=== PATIENT | male | born 1945 | race African-American/Black ===

== ENCOUNTER 2017-02-19 20:07 | Inpatient (IN) ==
[2017-02-19] MEDS ORDERED: ONDANSETRON 4 MG/2 ML VIAL IV STA (20:37)
[2017-02-19] MEDS ORDERED: SODIUM CHLORIDE 0.9% 500 ML IV STA (20:37)
[2017-02-19] MEDS ORDERED: KETOROLAC 30 MG/1 ML VIAL IV STA (20:37)
[2017-02-19] MEDS ORDERED: ONDANSETRON 4 MG/2 ML VIAL ONE (20:43)
[2017-02-19] MEDS ORDERED: KETOROLAC 30 MG/1 ML VIAL ONE (20:43)
[2017-02-19 20:47] LABS: Basophils % 0.2 % (0.0-0.8); Eosinophils % 0.3 % (0.00-10.9); Hematocrit 34.3 VOL% (42.0-52.0); Hemoglobin 11.5 GM/DL (14.0-18.0); Immature Granulocytes % 0.6 %; Immature Granulocytes Absolute 0.04 #; Lymphocytes # 0.7 10*3/uL (1.4-4.0); Lymphocytes % 11.3 % (21.2-54.2); Mean Corpuscular HGB Conc 33.5 GM/DL (32-36); Mean Corpuscular Hemoglobin 33 PG (27-34); Mean Corpuscular Volume 99.7 FL (87-102); Mean Platelet Volume 12.3 FL (9.6-12.0); Monocytes # 0.5 10*3/uL (0.11-0.8); Monocytes % 8.4 % (1.7-12.7); Neutrophils # 4.9 10*3/uL (1.4-7.4); Neutrophils % 79.2 % (38.7-73.9); Platelet Count 70 T/CUMM (130-400); Red Blood Count 3.44 MC/CUMM (3.8-5.5); Red Cell Distribution Width 14.6 % (9.3-17.3); White Blood Count 6.2 T/CUMM (4-12)
--- NOTE | 2017-02-19 20:49 | Emergency Department Note ---
Simone Diamond Hilary, am scribing for, and in the presence of, Da Ziegler MD 20:39. Toney Diamond Robert M, MD, personally performed the services described in this documentation, ascribed by Kateryna Nichols in my presence, and it is both accurate and complete . Arrival - Arrival Chief Complaint: Abdominal / Flank Pain ED Nursing Triage Note: ONSET ABD PAIN WITH N/V ONSET THIS AM, ZOFRAN 4MG IV PER EMS BOILER/CHILLER OPERATOR, PT STILL COMPLAINS OF NAUSEA Mode of Arrival: Stretcher Limitations: No Limitations Source: Patient, RN Notes Reviewed - History of Present Illness HPI Narrative: Pt is a 71 y/o male brought into the ED via EMS for c/o abdominal pain which onset this AM. Pt confirms nausea, vomiting, abdominal pain adn diarrhea. He states that the bumps in the road hurt and it feels better to sit with his hips and knees up. No other complaints or problems stated in the ED. Onset (ago): hour(s) Consistency: constant Severity: mild Severity scale (1-10): 1 Quality: cramping Allergies/Adverse Reactions: Allergies Allergy/AdvReac Type Severity Reaction Status Date / Time morphine Allergy Severe UNRESPONSIV Verified 02/19/17 20:19 E cephalexin [From Keflex] Allergy Intermediate RASH Verified 02/19/17 20:19 azithromycin AdvReac Intermediate INJECTION Verified 02/19/17 20:19 SITE REACTION propranolol AdvReac Intermediate Palpitation Verified 02/19/17 20:19 s Home Medications: Home Medications Medication Instructions Recorded Confirmed Type Albuterol Sulfate [Ventolin HFA] 2 puffs IH Q4HR PRN 11/15/14 12/11/16 History Betaxolol 0.5% Oph Soln [Betoptic 1 drop BOTH EYES BID 11/15/14 12/10/16 History 0.5%] Brimonidine 0.15% Oph Soln 1 drops BOTH EYES TID 11/15/14 12/10/16 History [Alphagan P 0.15%] Docusate Sodium 100 mg PO DAILY 11/15/14 12/10/16 History Dorzolamide 2% Oph Soln [Trusopt] 1 drop BOTH EYES TID 11/15/14 12/10/16 History Latanoprost 0.005% Oph Soln 1 drop BOTH EYES BEDTIME 11/15/14 12/10/16 History [Xalatan] Metoprolol Succinate Xl [Toprol Xl] 50 mg PO BID 11/15/14 12/10/16 History Tiotropium Inhalation [Spiriva 18 mcg INH DAILY 11/15/14 12/10/16 History Handihaler] Pantoprazole Tab [Protonix Tab] 40 mg PO BID #0 11/25/14 12/10/16 Rx Potassium Chloride Cap/Tab [K Dur] 10 meq PO DAILY tablet 11/04/15 12/10/16 Rx Albuterol/Ipratropium Neb [Duoneb] 3 ml RESP TX RT Q4H nebulization 11/06/15 Rx solution Budesonide/Formoterol 160-4.5 1 puff PO BID 11/06/15 12/10/16 History [Symbicort 160-4.5] Cetirizine HCl [Cetirizine Tab] 10 mg PO DAILY 12/10/16 12/10/16 History Folic Acid Tab 1 mg PO DAILY 12/10/16 12/10/16 History Ipratropium/Albuterol Inhaler 1 puff INH QID 12/10/16 12/10/16 History [Combivent Respimat Inhaler] Lipase/Protease/Amylase [Creon 1 capsule PO TID W/MEALS 12/10/16 12/10/16 History 36,000 Units] Multivit-Min/FA/Lycopen/Lutein 1 each PO DAILY 12/10/16 12/10/16 History [Centrum Silver Tablet] Polyethylene Glycol Powder 17 gm PO DAILY 12/10/16 12/10/16 History [Miralax] hydroCHLOROthiazide 12.5 mg PO DAILY 12/10/16 12/10/16 History [Hydrochlorothiazide] Alfuzosin [Uroxatral] 10 mg PO DAILY 12/11/16 12/11/16 History Aspirin 81 mg PO DAILY 12/11/16 12/11/16 History Atorvastatin [Lipitor] 20 mg PO BEDTIME 12/11/16 12/11/16 History Cholecalciferol (Vitamin D3) 1,000 unit PO BID 12/11/16 12/11/16 History [Vitamin D3 Chew Tab] Magnesium Oxide 420 mg PO BID 12/11/16 12/11/16 History Thiamine HCl 100 mg PO DAILY 12/11/16 12/11/16 History Review of System - Review of System 12 point system: reviewed and no additional remarkable complaints except as stated - Review of System Constitutional: Absent: fever Gastrointestinal: Present: abdominal pain, nausea, vomiting, diarrhea Medical,Surgical,& Family Hx - Medical History Cardio: History of: CHF, Hypertension, [place], PVD (DVT WITH PROLONGED HOSPITALIZATION) Neurology: No history of: Multiple Sclerosis, Seizures, Neurologocal Cancer HEENT: History of: Eye Problem (detached retina of left eye, since June, seen [place]), Glaucoma Endocrine: History of: Dyslipidemia No history of: Thyroid Disorder Respiratory: History of: COPD, Respiratory Problems (HOME O2 AT 2 LITERS) Genitourinary: History of: Prostate Problems (HAD A BALLOON IN PROSTATE) No history of: Bladder Problem Gastrointestinal: History of: GERD, Pancreatitis, GI Problems (GALLSTONES) Musculoskeletal: History of: Musculoskeletal Problems (DVT,DOES HAVE IVC FILTER) Hematology: History of: Anemia No history of: Blood Transfusion Reaction Other: History of: Anesthesia Reactions (DIDNT WAKE UP FOR 13 DAYS AFTER IVP FILTER PLACED.) No history of: Cancer - Surgical History Cardiac Surgeries: Sugical HX of: Cardiac Catheterization HEENT Surgeries: Patient denies: Eye Surgery, Tonsilectomy & Adenoidectomy Abdominal Surgeries: Surgical HX of: Appendectomy (APPENDECTOMY), Colonoscopy, EGD (EGD IN JUN, JUL) Patient denies: Cholecystectomy Reproductive Surgeries: Surgical HX of;: Prostate Surgery Orthopedic Surgeries: Surgical HX of;: Spinal Surgery (GROWTH BEHIND HIS NECK) Patient denies;: Orthopedic Surgery - Family History Family History: Reports;: Family Cancer (MOTHER-COLON, BROTHER-BRAIN TUMOR, SISTER-BRAIN CANCER), Family Hypertension - Social History Smoking Status: Never smoker Exam Vital Signs: Vital Signs Temperature 99.1 F 02/19/17 20:10 Pulse Rate 93 H 02/19/17 21:45 Respiratory Rate 20 02/19/17 21:45 Blood Pressure 131/89 02/19/17 21:45 O2 Sat by Pulse Oximetry 97 02/19/17 21:45 - General General appearance: alert, in no apparent distress, other (sitting with hips and knees flexed) - Head Head exam: Present: atraumatic, normocephalic - Eye Eye exam: Present: normal appearance, PERRL, EOMI - ENT ENT exam: Present: mucous membranes moist, TM's normal bilaterally. Absent: mucous membranes dry - Neck Neck exam: Present: full ROM, trachea midline. Absent: tenderness - Chest Chest inspection: Present: symmetric chest wall rise. Absent: tenderness - Respiratory Respiratory exam: Present: normal lung sounds bilaterally. Absent: respiratory distress - Cardiovascular Cardiovascular exam: Present: regular rate, normal rhythm, normal heart sounds. Absent: murmur, rubs, gallop - Abdominal Exam Abdominal exam: Present: soft, tenderness (LLQ bilaterally), rebound, normal bowel sounds. Absent: distention, guarding - Extremities Exam Extremities exam: Present: full ROM. Absent: tenderness - Back Exam Back exam: Present: full ROM. Absent: tenderness - Neurological Exam Neurological exam: Present: alert, oriented X3, CN II-XII intact. Absent: motor sensory deficit - Psychiatric Psychiatric exam: Present: normal affect, normal mood - Skin Skin exam: Present: warm, dry, intact, normal color. Absent: rash Course - Reevaluation(s) Reevaluation #1: The patient remains somewhat tender in the upper quadrants bilaterally and the abdomen remains slightly distended. Time: 23:28 - Consultations Consultation #1: Dr. Bang Millan will evaluate and admit the patient. Time: 23:28 Results - Labs CBC & BMP: 02/19/17 20:01 02/19/17 20:01 Lab Results: I have reviewed the patients labs Labs: Lab Results WBC 6.2 T/CUMM (4-12) 02/19/17 20:01 RBC 3.44 MC/CUMM (3.8-5.5) L 02/19/17 20:01 Hgb 11.5 GM/DL (14.0-18.0) L 02/19/17 20:01 Hct 34.3 VOL% (42.0-52.0) L 02/19/17 20:01 MCV 99.7 FL (87-102) 02/19/17 20:01 MCH 33 PG (27-34) 02/19/17 20:01 MCHC 33.5 GM/DL (32-36) 02/19/17 20:01 RDW 14.6 % (9.3-17.3) 02/19/17 20:01 Plt Count 70 T/CUMM (130-400) L 02/19/17 20:01 MPV 12.3 FL (9.6-12.0) H 02/19/17 20:01 Neut % (Auto) 79.2 % (38.7-73.9) H 02/19/17 20:01 Lymph % (Auto) 11.3 % (21.2-54.2) L 02/19/17 20:01 Irwin % (Auto) 8.4 % (1.7-12.7) 02/19/17 20:01 Eos % (Auto) 0.3 % (0.00-10.9) 02/19/17 20:01 Baso % (Auto) 0.2 % (0.0-0.8) 02/19/17 20:01 Neut # (Auto) 4.9 10*3/uL (1.4-7.4) 02/19/17 20:01 Lymph # (Auto) 0.7 10*3/uL (1.4-4.0) L 02/19/17 20:01 Irwin # (Auto) 0.5 10*3/uL (0.11-0.8) 02/19/17 20:01 Eos # (Auto) 0.0 10*3/uL (0.0-0.87) 02/19/17 20:01 Baso # (Auto) 0.0 10*3/uL (0.0-0.2) 02/19/17 20:01 Immature Gran % 0.6 % 02/19/17 20:01 Nucleated RBC % 0.0 /100WBC 02/19/17 20:01 Immature Gran # 0.04 # 02/19/17 20:01 Nucleated RBCs # 0.00 10*3/uL 02/19/17 20:01 Sodium 137 MMOL/L (136-145) 02/19/17 20:01 Potassium 4.2 MMOL/L (3.5-5.1) 02/19/17 20:01 Chloride 102 MMOL/L (98-107) 02/19/17 20:01 Carbon Dioxide 26 MMOL/L (21-32) 02/19/17 20:01 Anion Gap 13.2 MMOL/L (5.0-15.0) 02/19/17 20:01 BUN 15 MG/DL (7-18) 02/19/17 20:01 Creatinine 0.90 MG/DL (0.70-1.30) 02/19/17 20:01 GFR Calculation 101 ML/MIN 02/19/17 20:01 BUN/Creatinine Ratio 16.00 RATIO (6.00-20.00) 02/19/17 20:01 Glucose 120 MG/DL (74-106) H 02/19/17 20:01 Calculated Osmolality 274.8 MOS/KG (273-304) 02/19/17 20:01 Lactic Acid 2.4 MMOL/L (0.4-2.0) H 02/19/17 20:01 Calcium 8.5 MG/DL (8.5-10.1) 02/19/17 20:01 Total Bilirubin 0.40 MG/DL (0.2-1.0) 02/19/17 20:01 AST 24 U/L (0-37) 02/19/17 20:01 ALT 18 U/L (16-61) 02/19/17 20:01 Alkaline Phosphatase 80 U/L (45-117) 02/19/17 20:01 Total Protein 6.5 G/DL (6.4-8.3) 02/19/17 20:01 Albumin 3.2 G/DL (3.4-5.0) L 02/19/17 20:01 Globulin 3.3 G/DL (2.3-3.5) 02/19/17 20:01 Albumin/Globulin Ratio 0.9 RATIO (1.1-2.2) L 02/19/17 20: Lipase 142.0 U/L (73-393) 02/19/17 20:01 - Diagnostic Findings Procedure: Chest x-ray: image reviewed by me (Improved appearance of left costophrenic angle. No acute process.), CT Abdomen and Pelvis: image reviewed by me (Stable appearance of the pancreas. Distended gastric fundus and body as described on CT report to suggest gastric outlet obstruction.)
[2017-02-19 21:00] LABS: Albumin 3.2 G/DL (3.4-5.0); Bilirubin,Total 0.4 MG/DL (0.2-1.0); Calcium 8.5 MG/DL (8.5-10.1); Osmolality,Calculated 274.8 MOS/KG (273-304); Potassium 4.2 MMOL/L (3.5-5.1); Total Protein 6.5 G/DL (6.4-8.3)
[2017-02-19 21:27] LABS: Lactic Acid 2.4 MMOL/L (0.4-2.0)
[2017-02-20 01:30] LABS: Apearance,Urine CLEAR (Clear); Bilirubin,Urine Negative (Negative); Blood, Urine Small mg/dL (Negative); Glucose,Urine (UA) Negative (Negative); Hyaline Casts,Urine 2 /LPF (0-3); Ketones,Urine 5 mg/dL (Negative); Mucus,Urine Occasional /LPF (Occasional); Nitrite,Urine Negative (Negative); Protein,Urine Negative; RBC,Urine 7 /HPF (0-4); Squamous Epithelial Cell,Urine Occasional /HPF (0-10); Urine Color Yellow (Yellow); Urine Urobilinogen < 2.0 EU/DL (0.2-1.0); WBC,Urine 63 /HPF (0-6)
--- NOTE | 2017-02-20 03:14 | Hospitalist History & Physical ---
Assessment and Plan (1) Acute abdominal pain Status: Acute Current Visit: No (2) COPD (chronic obstructive pulmonary disease) Status: Acute Current Visit: No (3) Gastric outlet obstruction Status: Acute Current Visit: No (4) Vomiting Status: Acute Current Visit: No (5) Generalized weakness Status: Chronic Current Visit: No (6) Nausea & vomiting Status: Resolved Assessment and plan: Our plan for this patient will be admitting him to our service. Patient has an initial increase his lactate will need to repeat this lab value to see where it goes. Patient does not appear toxic. Patient is much more comfortable with NG tube down. We need to consult consult Dr. Pathak for his evaluation. Patient has pancreatic duct dilations and a possible gastric outlet obstruction. Patient has a history of pyloric stenosis although his EGD did not display this 2-1/2 months ago. We will going continue with NG suction for now. And start some IV fluids on the patient. Current Visit: No History of Present Illness Chief complaint: Abdominal pain nausea vomiting History of present illness: Mr. Mcdonnell is a 71 year old male with past medical history significant for COPD glaucoma gallstones and pyloric stenosis who is in his normal state of health till yesterday. Patient said he ate some oatmeal bananas and peanuts. After that he started with nausea vomiting diarrhea. Said this is been steady in his abdominal pain started at 1 PM today. Patient tried some chicken broth but but soon thereafter he started throwing it up. Patient had a CT scan in the emergency room of his abdomen. CT scan per the virtual radiology read the listed listed distended gastric fundus and body with thickening and narrowing along the prepyloric gastric antrum. Possible stricture and developing gastric outlet obstruction is noted patient has increased pancreatic duct dilation measuring up to 22 mm in diameter findings are suggestive of possible obstruction downstream pancreatic duct calcification stone or occult pancreatic lesion. I was consulted to admit the patient. Patient had a NG tube placed while in the emergency room and his abdominal pain has virtually resolved. Home Medications Medication Instructions Recorded Confirmed Type Albuterol Sulfate [Ventolin HFA] 2 puffs IH Q4HR PRN 11/15/14 12/11/16 History Betaxolol 0.5% Oph Soln [Betoptic 1 drop BOTH EYES BID 11/15/14 12/10/16 History 0.5%] Brimonidine 0.15% Oph Soln 1 drops BOTH EYES TID 11/15/14 12/10/16 History [Alphagan P 0.15%] Docusate Sodium 100 mg PO DAILY 11/15/14 12/10/16 History Dorzolamide 2% Oph Soln [Trusopt] 1 drop BOTH EYES TID 11/15/14 12/10/16 History Latanoprost 0.005% Oph Soln 1 drop BOTH EYES BEDTIME 11/15/14 12/10/16 History [Xalatan] Metoprolol Succinate Xl [Toprol Xl] 50 mg PO BID 11/15/14 12/10/16 History Tiotropium Inhalation [Spiriva 18 mcg INH DAILY 11/15/14 12/10/16 History Handihaler] Pantoprazole Tab [Protonix Tab] 40 mg PO BID #0 11/25/14 12/10/16 Rx Potassium Chloride Cap/Tab [K Dur] 10 meq PO DAILY tablet 11/04/15 12/10/16 Rx Albuterol/Ipratropium Neb [Duoneb] 3 ml RESP TX RT Q4H nebulization 11/06/15 Rx solution Budesonide/Formoterol 160-4.5 1 puff PO BID 11/06/15 12/10/16 History [Symbicort 160-4.5] Cetirizine HCl [Cetirizine Tab] 10 mg PO DAILY 12/10/16 12/10/16 History Folic Acid Tab 1 mg PO DAILY 12/10/16 12/10/16 History Ipratropium/Albuterol Inhaler 1 puff INH QID 12/10/16 12/10/16 History [Combivent Respimat Inhaler] Lipase/Protease/Amylase [Creon 1 capsule PO TID W/MEALS 12/10/16 12/10/16 History 36,000 Units] Multivit-Min/FA/Lycopen/Lutein 1 each PO DAILY 12/10/16 12/10/16 History [Centrum Silver Tablet] Polyethylene Glycol Powder 17 gm PO DAILY 12/10/16 12/10/16 History [Miralax] hydroCHLOROthiazide 12.5 mg PO DAILY 12/10/16 12/10/16 History [Hydrochlorothiazide] Alfuzosin [Uroxatral] 10 mg PO DAILY 12/11/16 12/11/16 History Aspirin 81 mg PO DAILY 12/11/16 12/11/16 History Atorvastatin [Lipitor] 20 mg PO BEDTIME 12/11/16 12/11/16 History Cholecalciferol (Vitamin D3) 1,000 unit PO BID 12/11/16 12/11/16 History [Vitamin D3 Chew Tab] Magnesium Oxide 420 mg PO BID 12/11/16 12/11/16 History Thiamine HCl 100 mg PO DAILY 12/11/16 12/11/16 History Allergies Allergy/AdvReac Type Severity Reaction Status Date / Time morphine Allergy Severe UNRESPONSIV Verified 02/19/17 20:19 E cephalexin [From Keflex] Allergy Intermediate RASH Verified 02/19/17 20:19 azithromycin AdvReac Intermediate INJECTION Verified 02/19/17 20:19 SITE REACTION propranolol AdvReac Intermediate Palpitation Verified 02/19/17 20:19 s Medical,Surgical,& Family Hx - Medical History Cardio: History of: CHF, Hypertension, [place], PVD (DVT WITH PROLONGED HOSPITALIZATION) Neurology: No history of: Multiple Sclerosis, Seizures, Neurologocal Cancer HEENT: History of: Eye Problem (detached retina of left eye, since June, seen at [place]), Glaucoma Endocrine: History of: Dyslipidemia No history of: Thyroid Disorder Respiratory: History of: COPD, Respiratory Problems (HOME O2 AT 2 LITERS) Genitourinary: History of: Prostate Problems (HAD A BALLOON IN PROSTATE) No history of: Bladder Problem Gastrointestinal: History of: GERD, Pancreatitis, GI Problems (GALLSTONES) Musculoskeletal: History of: Musculoskeletal Problems (DVT,DOES HAVE IVC FILTER) Hematology: History of: Anemia No history of: Blood Transfusion Reaction Other: History of: Anesthesia Reactions (DIDNT WAKE UP FOR 13 DAYS AFTER IVP FILTER PLACED.) No history of: Cancer - Surgical History Cardiac Surgeries: Sugical HX of: Cardiac Catheterization HEENT Surgeries: Patient denies: Eye Surgery, Tonsilectomy & Adenoidectomy Abdominal Surgeries: Surgical HX of: Appendectomy (APPENDECTOMY), Colonoscopy, EGD (EGD IN Jun,) Patient denies: Cholecystectomy Reproductive Surgeries: Surgical HX of;: Prostate Surgery Orthopedic Surgeries: Surgical HX of;: Spinal Surgery (GROWTH BEHIND HIS NECK) Patient denies;: Orthopedic Surgery - Family History Family History: Reports;: Family Cancer (MOTHER-COLON, BROTHER-BRAIN TUMOR, SISTER-BRAIN CANCER), Family Hypertension - Social History Smoking Status: Never smoker 12 point system: reviewed and no additional remarkable complaints except as stated Exam - Constitutional Vitals: Period Temp Pulse Resp BP Sys/Gallego Pulse Ox Last 24 Hr 99.1 F-99.1 F 84-94 19-20 122-146/84-91 95-98 General appearance: normal weight - Head Head exam: Present: normal inspection - Eye Eye exam: Present: other ([place] sclera) Pupils: Present: HEMAL - ENT ENT exam: Present: other (NG tube in place) - Neck Neck exam: Present: normal inspection - Respiratory Respiratory exam: Present: clear to auscultation bilaterally - Cardiovascular Cardiovascular exam: Present: regular rate and rhythm - GI/Abdominal GI/Abdominal exam: Present: normal bowel sounds - Extremities Exam Extremities exam: Present: normal inspection - Back Exam Back exam: Present: normal inspection - Neurological Exam Neurological exam: Present: alert - Psychiatric Psychiatric exam: Present: normal affect - Skin Skin exam: Present: normal color Results - Labs CBC & BMP: 02/19/17 20:01 02/19/17 20:01
[2017-02-20] MEDS ORDERED: KETOROLAC 30 MG/1 ML VIAL IV PRN (04:52)
[2017-02-20] MEDS: ALBUTEROL/IPRATROPIUM 3 ML NEB RESP TX SCH ×3 (05:30→20:00)
[2017-02-20] MEDS: SODIUM CHLORIDE 0.9% 1,000 ML IV SCH ×2 (05:36→15:20)
[2017-02-20] MEDS: LEVOFLOXACIN INJ 500 MG in PREMIX 1 EACH IV SCH (05:37)
[2017-02-20 06:58] LABS: Basophils % 0.2 % (0.0-0.8); Hematocrit 33.7 VOL% (42.0-52.0); Immature Granulocytes % 0.6 %; Immature Granulocytes Absolute 0.03 #; Lymphocytes # 0.8 10*3/uL (1.4-4.0); Lymphocytes % 15.6 % (21.2-54.2); Mean Corpuscular HGB Conc 32.6 GM/DL (32-36); Mean Corpuscular Hemoglobin 33 PG (27-34); Mean Corpuscular Volume 100.9 FL (87-102); Mean Platelet Volume 12.2 FL (9.6-12.0); Monocytes # 0.8 10*3/uL (0.11-0.8); Neutrophils # 3.5 10*3/uL (1.4-7.4); Neutrophils % 68.6 % (38.7-73.9); Red Blood Count 3.34 MC/CUMM (3.8-5.5); Red Cell Distribution Width 14.9 % (9.3-17.3); White Blood Count 5.1 T/CUMM (4-12)
[2017-02-20 07:00] LABS: Platelet Count 69 T/CUMM (130-400)
[2017-02-20 07:18] LABS: Hypochromasia 1+; Ovalocytes Slight; Platelet Estimate Decreased
[2017-02-20 07:29] LABS: Albumin 2.9 G/DL (3.4-5.0); Bilirubin,Total 0.8 MG/DL (0.2-1.0); Osmolality,Calculated 280.4 MOS/KG (273-304); Potassium 4.1 MMOL/L (3.5-5.1); Total Protein 6.1 G/DL (6.4-8.3)
--- NOTE | 2017-02-20 08:11 | XRay Report ---
History is NG tube replacement. The heart is normal in size. NG tube is now coiled in the stomach with tip in the distal stomach No confluent infiltrate is seen. IVC filter noted Impression: NG tube tip now in the distal stomach PROCEDURE INTERPRETED AT [facility] DEPARTMENT OF RADIOLOGY Final Report Signed by: Dr. Elza Avila
--- NOTE | 2017-02-20 08:15 | XRay Report ---
Exam: XR chest 1V portable Indication: Abdominal pain Comparison study: 11/05/2015 Findings: The heart, mediastinum and bony structures are stable from prior. Lungs are mildly hyperexpanded with central perihilar interstitial prominence, which appears similar prior may represent underlying scarring changes. There is no focal consolidation, pneumothorax or pleural effusion identified. Impression: Mild hyperinflation of the lungs and probable central interstitial scarring changes/COPD. Otherwise, no active disease or significant change. PROCEDURE INTERPRETED AT [facility] DEPARTMENT OF RADIOLOGY Final Report Signed by: Franky Minaya
--- NOTE | 2017-02-20 08:32 | XRay Report ---
Exam: XR chest 1V portable Indication: NG tube placement Comparison study: 02/19/2017 at 9:25 PM Findings: Esophagogastric tube is noted within the esophagus but terminates near the gastroesophageal junction. Advancement T10-12 centimeters is recommended for optimal positioning. Lungs remain hyperexpanded. Cardiac silhouette and mediastinal contours appear unchanged. Multiple calcific densities in the upper abdomen may represent changes of chronic pancreatitis, partially imaged. These IVC filter noted in place. Impression: Esophagogastric tube within the proximal stomach. Advancement 10-12 centimeters is recommended for more optimal positioning. PROCEDURE INTERPRETED AT [facility] DEPARTMENT OF RADIOLOGY Final Report Signed by: Franky Minaya
--- NOTE | 2017-02-20 08:48 | Gastrointestinal Consult Note ---
Assessment and Plan (1) Acute abdominal pain Status: Acute Assessment and plan: 02/20-sudden onset of abdominal pain with associated nausea, vomiting and diarrhea. Symptoms are currently resolved NG tube in place. CT findings noted as below. Prior history of chronic pancreatitis and gastric outlet obstruction with dilation in the past. Recent endoscopy noted below. If patient continues to improve, can clamp NG tube and begin ice chips. Plan an addendum to followed by Dr. Pathak. Current Visit: No History of Present Illness Chief complaint: Abdominal pain with nausea, vomiting and diarrhea History of present illness: Mr. Mcdonnell is a 71 year old male who was admitted to the hospital and yesterday with a fairly sudden onset of abdominal pain with associated nausea, vomiting and diarrhea. Patient states that he was in his usual state of health until yesterday afternoon. He states he felt well when he woke yesterday and ate his usual routine diet. He states around lunchtime he began having some abdominal pain and became nauseated. Shortly after this he began vomiting and also had an onset of diarrhea. He denies any coffee-ground or hematemesis as well as denies any melena or hematochezia. He states that he became a little scared and called the ambulance to bring him in for further evaluation. Patient has a prior history of gastric outlet obstruction. He states that his symptoms this time felt unrelated to his prior symptoms associated with his gastric outlet obstruction. Patient does state that he has been exposed this week to a caregiver who has been sick with the same symptoms. He had an NG tube placed on yesterday with moderate gastric output noted. He also had a CT of abdomen on admission, however no report is available at this time to review but according to the admitting hospitalist, findings were noted for distended gastric fundus and body with thickening and narrowing along the prepyloric gastric antrum, possible stricture and developing gastric outlet obstruction, and pancreatic ductal dilatation. Patient has a prior history of chronic pancreatitis and takes pancreatic enzymes daily. He is also noted on prior comparison studies to have pancreatic ductal dilation which has been unchanged from recent studies. Patient states his pancreatitis has been well controlled as of recent. His lipase level on admission noted at 142. UA noted to show large amount of leukocytes and culture is pending. He is also noted to have had a recent abdominal ultrasound in December of this year for complaints of epigastric abdominal pain with findings of cholelithiasis and acute cholecystitis with a positive Rebolledo sign. His last EGD was noted in December with only findings of gastritis. He does have a history of peptic ulcer disease. Denies any NSAID use. States he has lost approximately 9 pounds over the last 3 months but feels like this is improving. His weight does appear to be improved from his prior admissions. Home Medications Medication Instructions Recorded Confirmed Type Betaxolol 0.5% Oph Soln [Betoptic 1 drop BOTH EYES BID 11/15/14 02/20/17 History 0.5%] Brimonidine 0.15% Oph Soln 1 drops BOTH EYES TID 11/15/14 02/20/17 History [Alphagan P 0.15%] Docusate Sodium 100 mg PO DAILY 11/15/14 02/20/17 History Dorzolamide 2% Oph Soln [Trusopt] 1 drop BOTH EYES TID 11/15/14 02/20/17 History Latanoprost 0.005% Oph Soln 1 drop BOTH EYES BEDTIME 11/15/14 02/20/17 History [Xalatan] Metoprolol Succinate Xl [Toprol Xl] 50 mg PO BID 11/15/14 02/20/17 History Tiotropium Inhalation [Spiriva 18 mcg INH DAILY 11/15/14 02/20/17 History Handihaler] Pantoprazole Tab [Protonix Tab] 40 mg PO BID #0 11/25/14 02/20/17 Rx Budesonide/Formoterol 160-4.5 1 puff PO BID 11/06/15 02/20/17 History [Symbicort 160-4.5] Folic Acid Tab 1 mg PO BEDTIME 12/10/16 02/20/17 History Ipratropium/Albuterol Inhaler 1 puff INH QID 12/10/16 02/20/17 History [Combivent Respimat Inhaler] Polyethylene Glycol Powder 17 gm PO DAILY 12/10/16 02/20/17 History [Miralax] hydroCHLOROthiazide 12.5 mg PO DAILY 12/10/16 02/20/17 History [Hydrochlorothiazide] Alfuzosin [Uroxatral] 10 mg PO BEDTIME 12/11/16 02/20/17 History Aspirin 81 mg PO DAILY 12/11/16 02/20/17 History Atorvastatin [Lipitor] 20 mg PO BEDTIME 12/11/16 02/20/17 History Cholecalciferol (Vitamin D3) 1,000 unit PO BID 12/11/16 02/20/17 History [Vitamin D3 Chew Tab] Magnesium Oxide 420 mg PO BEDTIME 12/11/16 02/20/17 History Thiamine HCl 100 mg PO DAILY 12/11/16 02/20/17 History Albuterol/Ipratropium Neb [Duoneb] 3 ml RESP TX RT Q4H PRN 02/20/17 02/20/17 History Cyanocobalamin (Vitamin B-12) 1,000 mcg PO DAILY 02/20/17 02/20/17 History [Vitamin B-12] Lipase/Protease/Amylase [Creon 3 capsule PO TID W/MEALS 02/20/17 02/20/17 History 12,000 Units] Potassium Chloride Cap/Tab [K Dur] 10 meq PO BID 02/20/17 02/20/17 History Simethicone 180 mg PO DAILY PRN MDD 360 02/20/17 02/20/17 History Allergies Allergy/AdvReac Type Severity Reaction Status Date / Time morphine Allergy Severe UNRESPONSIV Verified 02/19/17 20:19 E cephalexin [From Keflex] Allergy Intermediate RASH Verified 02/19/17 20:19 azithromycin AdvReac Intermediate INJECTION Verified 02/19/17 20:19 SITE REACTION propranolol AdvReac Intermediate Palpitation Verified 02/19/17 20:19 s metronidazole [From Flagyl] AdvReac Verified 02/20/17 05:23 Medical,Surgical,& Family Hx - Medical History Cardio: History of: CHF, Hypertension, [place], PVD (DVT WITH PROLONGED HOSPITALIZATION) Neurology: No history of: Multiple Sclerosis, Seizures, Neurologocal Cancer HEENT: History of: Eye Problem (detached retina of left eye, 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, seen at [facility]), Glaucoma Endocrine: History of: Dyslipidemia No history of: Thyroid Disorder Respiratory: History of: COPD, Respiratory Problems (HOME O2 AT 2 LITERS) Genitourinary: History of: Prostate Problems (HAD A BALLOON IN PROSTATE) No history of: Bladder Problem Gastrointestinal: History of: GERD, Pancreatitis, GI Problems (GALLSTONES) Musculoskeletal: History of: Musculoskeletal Problems (DVT,DOES HAVE IVC FILTER) Hematology: History of: Anemia No history of: Blood Transfusion Reaction Other: History of: Anesthesia Reactions (DIDNT WAKE UP FOR 13 DAYS AFTER IVP FILTER PLACED.) No history of: Cancer - Surgical History Cardiac Surgeries: Sugical HX of: Cardiac Catheterization HEENT Surgeries: Patient denies: Eye Surgery, Tonsilectomy & Adenoidectomy Abdominal Surgeries: Surgical HX of: Appendectomy (APPENDECTOMY), Colonoscopy, EGD (EGD IN Jun,), Hernia Repair Patient denies: Cholecystectomy Reproductive Surgeries: Surgical HX of;: Prostate Surgery Orthopedic Surgeries: Surgical HX of;: Spinal Surgery (GROWTH BEHIND HIS NECK) Patient denies;: Orthopedic Surgery - Family History Family History: Reports;: Family Cancer (MOTHER-COLON, BROTHER-BRAIN TUMOR, SISTER-BRAIN CANCER), Family Hypertension - Social History Smoking Status: Never smoker Frequency of Alcohol Use: Occasionally Type of Drug Use: None 12 point system: reviewed and no additional remarkable complaints except as stated - Constitutional Constitutional: Present: as per HPI - EENT Eyes: Present: as per HPI Ears: Present: as per HPI Nose, mouth and throat: Present: as per HPI - Cardiovascular Cardiovascular: Present: as per HPI - Respiratory Respiratory: Present: as per HPI - Gastrointestinal Gastrointestinal: Present: as per HPI, abdominal pain, diarrhea, nausea, vomiting - Genitourinary Genitourinary: Present: as per HPI - Musculoskeletal Musculoskeletal: Present: as per HPI - Neurological Neurological: Present: as per HPI - Psychiatric Psychiatric: Present: as per HPI - Endocrine Endocrine: Present: as per HPI - Hematologic/Lymphatic Hematologic/Lymphatic: Present: as per HPI Exam - Constitutional Vitals: Period Temp Pulse Resp BP Sys/Gallego Pulse Ox Last 24 Hr 98.6 F-99.1 F 77-94 18-24 108-146/81-91 95-99 General appearance: normal weight, no acute distress - Head Head exam: Present: normal inspection, normocephalic - Eye Eye exam: Present: other (Lids and conjunctive are unremarkable). Absent: scleral icterus - ENT ENT exam: Present: normal exam, normal oropharynx - Neck Neck exam: Present: normal inspection - Respiratory Respiratory exam: Present: clear to auscultation bilaterally. Absent: rales, rhonchi, wheezes - Cardiovascular Cardiovascular exam: Present: regular rate and rhythm. Absent: diastolic murmur , JVD, systolic murmur - GI/Abdominal GI/Abdominal exam: Present: normal bowel sounds, soft. Absent: ascites, distended, mass, organomegaly, tenderness - Extremities Exam Extremities exam: Present: normal inspection, full ROM - Back Exam Back exam: Present: normal inspection - Neurological Exam Neurological exam: Present: alert, oriented X3 - Psychiatric Psychiatric exam: Present: normal affect, normal mood - Skin Skin exam: Present: normal color, warm, dry Results - Labs CBC & BMP: 02/20/17 06:29 02/20/17 06:29 Lab Results: I have reviewed the past 24 hour labs - Diagnostic Findings Procedure: CT Abdomen and Pelvis: other (Report via admitting physician)
--- NOTE | 2017-02-20 09:30 | CT Report ---
History is abdominal and pelvic pain Comparison 10/29/2015 100 cc Omni 350 utilized Small hepatic cysts again seen No focal defects seen in the is spleen or adrenals. Tiny renal cysts again seen. Multiple calcifications in the region of pancreatic head again seen. There is worsening dilatation of the pancreatic duct which has a beaded appearance measuring up to 2.3 cm compared to 1.6 cm the prior study. No significant biliary ductal dilatation seen There is a stone in a nondistended gallbladder again seen No enlarged retroperitoneal nodes seen. IVC filter present. There is diffuse distention stomach with air and fluid. There is relative wall thickening in the antrum and pyloric region. Pelvis: There is trace nonspecific fluid in the lower pelvis. No focal inflammatory changes seen. Bowel is unopacified. Atherosclerotic changes present. Mild prostate enlargement present. Impression: 1. Chronic pancreatitis with a worsening pancreatic ductal dilatation up to 2.3 cm raising question of obstructing ductal calcification or less likely occult pancreatic lesion 2. gastric distention with diffuse wall thickening in the antrum-pyloris region which could be related to antritis or peptic ulcer disease. Infiltrative process would be an additional although less likely consideration 3. Cholelithiasis 4. IVC filter and other findings detailed above The CT exam was performed using one or more of the following dose reduction techniques: Automated exposure control, adjustment of the mA and/or kV according to patient size, or use of iterative reconstruction technique. PROCEDURE INTERPRETED AT [facility] DEPARTMENT OF RADIOLOGY Final Report Signed by: Dr. Elza Avila
[2017-02-20] MEDS: PANTOPRAZOLE 40 MG VIAL IV SCH ×2 (10:19→21:34)
[2017-02-20] MEDS: BUDESONIDE/FORMOTEROL 160-4.5 INHALER 6 GM INH SCH ×2 (10:24→21:35)
[2017-02-20] MEDS ORDERED: PHENOL 1.4% THROAT SPRAY 177 ML BOTTLE PO PRN (14:55)
[2017-02-21] MEDS: ALBUTEROL/IPRATROPIUM 3 ML NEB RESP TX SCH ×4 (00:30→20:06)
[2017-02-21] MEDS: SODIUM CHLORIDE 0.9% 1,000 ML IV SCH ×3 (01:05→20:33)
[2017-02-21] MEDS: LEVOFLOXACIN INJ 500 MG in PREMIX 1 EACH IV SCH (04:51)
[2017-02-21] MEDS: PANTOPRAZOLE 40 MG VIAL IV SCH ×2 (08:37→20:29)
[2017-02-21] MEDS: BUDESONIDE/FORMOTEROL 160-4.5 INHALER 6 GM INH SCH ×2 (08:40→20:32)
[2017-02-21] MEDS ORDERED: LIDOCAINE 1% 5 ML VIAL ONE (13:13)
[2017-02-21] MEDS ORDERED: PROPOFOL 200 MG/20 ML VIAL IV ONE (13:13)
[2017-02-21] MEDS ORDERED: PHENYLEPHRINE 1 MG/10 ML SYRINGE IV ONE (13:13)
--- NOTE | 2017-02-21 13:18 | History and Physical Update ---
History and Physical Update - History and Physical H&P was reviewed, the patient examined and there: are no changes in the patients condition since last H&P was completed. - Physical Exam Mental Status: alert and oriented Heart: regular rate and rhythm Lung: clear to auscultation Abdomen: within normal limits Vitals: within normal limits
--- NOTE | 2017-02-21 13:37 | Operative Note ---
Date of procedure: 02/21/17 Pre-op diagnosis: Nausea/vomiting, abnormal appearance of stomach on CT Procedure: Procedure: Esophagogastroduodenoscopy with biopsies gastric ulcer Brief clinical abstract: 71-year-old male with history of peptic ulcer disease and previous associated pyloric stenosis requiring balloon dilation is admitted with intractable nausea/vomiting over the last few days. He had CT abdomen with some thickening in the gastric antrum and question of gastric outlet obstruction. Indication for procedure: Nausea/vomiting, abnormal appearance of stomach on CT Endoscopic findings:[After informed consent was obtained, the patient was placed in the left lateral decubitus position. The gastroscope was inserted in the upper esophagus under direct vision with no resistance encountered. Esophageal mucosa appeared normal with squamocolumnar junction sharply demarcated at the diaphragmatic indentation. The endoscope was advanced in the stomach which was carefully examined including retroflexed view of the cardia and fundus. There was an approximately 8 mm white based punched out appearing ulcer in the prepyloric antrum. No visible vessel was associated with this. Photograph was taken. Multiple biopsies were obtained from the margin base of the ulcer for pathologic examination. There were several areas of subepithelial hemorrhage in the body of the stomach consistent with nasogastric tube trauma. Pyloric channel was mildly stenotic but patent and I was able to pass the gastroscope through this. Duodenal bulb also had scarred appearance with no active ulcer. Second and third portion of the duodenum appeared normal. The endoscope was removed and patient appeared to tolerate the procedure well. Impression: #1 gastric antral ulcer #2 no evidence of gastric outlet obstruction #3 duodenal bulb scarring related to previous peptic ulcer disease Recommendations: Start clear liquids and try to advance diet. PPI therapy. Ask about nonsteroidal use and breastfeeding peer counselor to discontinue if taking. Anesthesia: MAC Surgeon / Physician: Malcolm Pathak Estimated blood loss: minimal Specimens: other (Gastric ulcer) Condition: stable Disposition: post procedure unit Results - Labs CBC & BMP: 02/20/17 06:29 02/20/17 06:29 Discharge Plan - Discharge Medications No Action Docusate Sodium 100 mg PO DAILY Tiotropium Inhalation [Spiriva Handihaler] 18 mcg INH DAILY Latanoprost 0.005% Oph Soln [Xalatan] 1 drop BOTH EYES BEDTIME Dorzolamide 2% Oph Soln [Trusopt] 1 drop BOTH EYES TID Brimonidine 0.15% Oph Soln [Alphagan P 0.15%] 1 drops BOTH EYES TID Betaxolol 0.5% Oph Soln [Betoptic 0.5%] 1 drop BOTH EYES BID Metoprolol Succinate Xl [Toprol Xl] 50 mg PO BID Pantoprazole Tab [Protonix Tab] 40 mg PO BID #0 Budesonide/Formoterol 160-4.5 [Symbicort 160-4.5] 1 puff PO BID Thiamine HCl 100 mg PO DAILY Alfuzosin [Uroxatral] 10 mg PO BEDTIME Atorvastatin [Lipitor] 20 mg PO BEDTIME Aspirin 81 mg PO DAILY Cyanocobalamin (Vitamin B-12) [Vitamin B-12] 1,000 mcg PO DAILY Simethicone 180 mg PO DAILY PRN MDD 360 PRN Reason: Gas Albuterol/Ipratropium Neb [Duoneb] 3 ml RESP TX RT Q4H PRN PRN Reason: Shortness Of Breath/Wheezing Polyethylene Glycol Powder [Miralax] 17 gm PO DAILY Ipratropium/Albuterol Inhaler [Combivent Respimat Inhaler] 1 puff INH QID Folic Acid Tab 1 mg PO BEDTIME hydroCHLOROthiazide [Hydrochlorothiazide] 12.5 mg PO DAILY Cholecalciferol (Vitamin D3) [Vitamin D3 Chew Tab] 1,000 unit PO BID Magnesium Oxide 420 mg PO BEDTIME Lipase/Protease/Amylase [Creon 12,000 Units] 3 capsule PO TID W/MEALS Potassium Chloride Cap/Tab [K Dur] 10 meq PO BID - Follow Up or Referral - Forms/Instructions
--- NOTE | 2017-02-21 13:42 | Anesthesia Post-Op ---
Anesthesia Post OP - Post Ansesthetic Evaluation Patient seen in post op: Yes Resp: within normal limits CV: within normal limits Mental: within normal limits Temp: within normal limits [id number]: within normal limits Nausea and Vomiting: within normal limits Pain: within normal limits
--- NOTE | 2017-02-21 15:41 | Hospitalist Progress Note ---
Assessment and Plan (1) Nausea & vomiting Status: Resolved Assessment and plan: Improved now NGT out Colonoscopy today with gastric antal ulcer, no evidence of gastric outlet obstruction Will start clear liquid diet today Current Visit: No (2) Acute abdominal pain Status: Resolved Current Visit: No Hospitalist: Subjective Interval history: No acute events overnight. Denies abdominal pain. NGT has been removed. Colonoscopy today. Exam - Constitutional Vitals: Period Temp Pulse Resp BP Sys/Gallego Pulse Ox Last 24 Hr 96.8 F-98.1 F 72-92 13-20 89-133/57-89 97-100 General appearance: normal weight - Head Head exam: Present: normocephalic, atraumatic - Eye Eye exam: Present: EOMI Pupils: Present: HEMAL - ENT ENT exam: Present: normal exam - Neck Neck exam: Present: normal inspection - Respiratory Respiratory exam: Present: clear to auscultation bilaterally. Absent: rhonchi, wheezes - Cardiovascular Cardiovascular exam: Present: regular rate and rhythm - GI/Abdominal GI/Abdominal exam: Present: normal bowel sounds, soft. Absent: tenderness, rebound - Extremities Exam Extremities exam: Present: normal inspection - Back Exam Back exam: Present: normal inspection - Neurological Exam Neurological exam: Present: alert, oriented X3 - Psychiatric Psychiatric exam: Present: normal affect, normal mood - Skin Skin exam: Present: warm, intact Results - Labs CBC & BMP: 02/20/17 06:29 02/20/17 06:29
[2017-02-22] MEDS: ALBUTEROL/IPRATROPIUM 3 ML NEB RESP TX SCH ×5 (01:47→23:53)
[2017-02-22] MEDS: SODIUM CHLORIDE 0.9% 1,000 ML IV SCH ×2 (05:27→15:17)
[2017-02-22] MEDS: LEVOFLOXACIN INJ 500 MG in PREMIX 1 EACH IV SCH (05:28)
[2017-02-22] MEDS: PANTOPRAZOLE 40 MG VIAL IV SCH ×2 (08:33→20:27)
[2017-02-22] MEDS: BUDESONIDE/FORMOTEROL 160-4.5 INHALER 6 GM INH SCH ×2 (08:35→20:27)
--- NOTE | 2017-02-22 10:46 | Hospitalist Progress Note ---
Assessment and Plan (1) Nausea & vomiting Status: Resolved Assessment and plan: Improved now NGT out Colonoscopy today with gastric antal ulcer, no evidence of gastric outlet obstruction Advance diet Current Visit: No (2) Acute abdominal pain Status: Resolved Current Visit: No Hospitalist: Subjective Interval history: No acute events overnight. Patient feels much better. Tolerating a clear liquid diet. Exam - Constitutional Vitals: Period Temp Pulse Resp BP Sys/Gallego Pulse Ox Last 24 Hr 96.8 F-98.1 F 75-91 13-20 89-143/57-89 94-100 General appearance: normal weight - Head Head exam: Present: normocephalic, atraumatic - Eye Eye exam: Present: EOMI Pupils: Present: HEMAL - ENT ENT exam: Present: normal exam - Neck Neck exam: Present: normal inspection - Respiratory Respiratory exam: Present: clear to auscultation bilaterally. Absent: rhonchi, wheezes - Cardiovascular Cardiovascular exam: Present: regular rate and rhythm - GI/Abdominal GI/Abdominal exam: Present: normal bowel sounds, soft. Absent: tenderness, rebound - Extremities Exam Extremities exam: Present: normal inspection - Back Exam Back exam: Present: normal inspection - Neurological Exam Neurological exam: Present: alert, oriented X3 - Psychiatric Psychiatric exam: Present: normal affect, normal mood - Skin Skin exam: Present: warm, intact Results - Labs CBC & BMP: 02/20/17 06:29 02/20/17 06:29
--- NOTE | 2017-02-22 15:06 | Gastrointestinal Progress Note ---
Assessment and Plan (1) Gastric outlet obstruction Status: Acute Current Visit: No (2) Peptic ulcer disease Status: Acute Current Visit: No (3) Acute abdominal pain Status: Resolved Assessment and plan: PLEASE NOTE -- automatic citation of patient information is unavoidable in this electronic note. I have made a reasonable effort to review the information cited , but it is not a part of my evaluation, impression, or recommendation unless specifically discussed in the dictated text that follows. As well, voice recognition software was used in the creation of this clinical note. Reasonable effort was made to identify and correct gross errors. Despite proofreading, errors in security test engineer may be present, including nonsense verbiage at times. If you encounter such an error, please contact me at for discussion and correction. -- Ciaran Chief complaint: Gastric ulcer. Patient is a 71-year-old male with history of peptic ulcer disease and previously associated pyloric stenosis requiring balloon dilation who was admitted with intractable nausea and vomiting for the few days prior to admission. CT abdomen with some thickening of the gastric antrum and question of gastric outlet obstruction. EGD done 2016 with several areas of subepithelial hemorrhage in the body of the stomach consistent with nasogastric tube trauma, pyloric channel mildly stenotic but patent and able to pass the gastroscope, duodenal bulb was scarred appearance but no active ulcer, second and third portion of duodenum normal. Gastric antral ulcer without evidence of outlet obstruction. 24 hour events: EGD done yesterday, with gastric antral ulcer, no gastric outlet obstruction. NG tube was removed and clear liquid diet was started yesterday. Subjective: Patient states that he is feeling very well today, minimal abdominal pain, tolerating full liquid diet yesterday and today without nausea or emesis or worsening abdominal pain. Has passed flatus. Medications: reviewed with no gastrointestinal related changes noted. Pertinent GI medications include: Protonix 40 mg IV twice daily patient on levofloxacin for UTI Multiple vitamin supplements and stool softeners been held during admission REVIEW OF SYSTEMS: Complete other review of systems negative except as noted in the HPI PHYSICAL EXAMINATION: CONSTITUTIONAL: Vital signs reviewed as documented above. In no acute distress. Nontoxic-appearing. EYES: Anicteric conjunctiva. Extra-ocular movements are intact and symmetric. EARS: Able to hear speech at conversational volume level, no external trauma/ masses. MOUTH: No oral/mouth lesions or ulcers. NECK: No masses or crepitus. Thyroid is of normal size and symmetric. HEART: Regular rate, regular rhythm LUNGS: Clear to auscultation bilaterally. No increased work of breathing or accessory muscle use. GI/ABDOMEN: non-obese abdomen, soft, Mild tenderness to deep palpation in ROSELINE, no rebound tenderness, nondistended, no rigidity. No palpable mass. No appreciable hepatosplenomegaly. SKIN: No rash on face, arms, or hands. No palpable lesions MUSCULOSKELETAL: nursing reports Normal gait, currently laying in bed. Muscle tone appears normal without any abnormal movements. PSYCH: Normal affect. Alert and oriented to person, place, and time. Laboratory: Personally reviewed CB: Relatively stable WBC 5.1, hemoglobin 11, MCV 100.9, platelets 69 Chemistry within normal limits, calcium corrects to normal with low albumin of 2.9 Lipase 142 Urine was significant leukocyte esterase, gram-positive cocci noted from specimens 02/20/2017 Radiology: Personally reviewed reports and images with no pertinent changes unless noted here: Impressions: 1. Gastric antral ulcer with patent but mildly stenotic pylorus. Previously dilated in the past. Currently stable, and doing well with advanced diet and protonix. Patient denies any prior NSAIDs other than aspirin 81mg, reporting using Tylenol only for pain. This raises potential concern for Hpylori or malignancy, versus inadequate PPi therapy with aspirin dosing. 2. Other specified counseling -- Patient seen for greater than 30 minutes. Greater than 50% of this time was spent counseling regarding differential diagnosis, likely diagnosis,, diagnostic and therapeutic options, risks, benefits, and alternatives to procedures and medications, informed consent, and plan of care generally. Patient has expressed understanding and wishes to proceed. Recommendations: --Advance diet as tolerated, continue with NO NSAIDs except for low-dose aspirin , and continue PPI twice daily. Can transition to oral PPI BID, but must be taken on an empty stomach and eat 30-60 min later or medication will not be effective. Will likely require at least daily PPI lifelong, and may require BID dosing lifelong. Patient requesting to make sure discharge medications are for twice daily, and with 90 day supply to ensure he does not run out ([facility]). Defer to primary discharging service. --Follow-up pathology report and treat for H. pylori if positive. If patient has never been diagnosed or treated for H. pylori in the past, can consider H. pylori IgG antibody testing, and treat if positive. H. pylori stool antigen may be falsely negative in the setting of PPI use. --Repeat EGD in 8-12 weeks as an outpatient with GI to ensure ulcer has healed --I recommend vitamin D 2000 units daily and calcium 800-1200 mg daily while you are on a long-term PPI medication to ensure you are getting adequate intake to help protect against bone loss. GI will sign off at this time, please call if pathology returns and any questions arise. Current Visit: No Exam (Progress Note) - Constitutional Vitals: Period Temp Pulse Resp BP Sys/Gallego Pulse Ox Last 24 Hr 97 F-98 F 75-90 17-20 95-143/64-78 94-100 Results - Labs CBC & BMP: 02/20/17 06:29 02/20/17 06:29
[2017-02-23] MEDS: SODIUM CHLORIDE 0.9% 1,000 ML IV SCH ×3 (01:05→20:46)
[2017-02-23] MEDS: LEVOFLOXACIN INJ 500 MG in PREMIX 1 EACH IV SCH (05:25)
[2017-02-23] MEDS: ALBUTEROL/IPRATROPIUM 3 ML NEB RESP TX SCH ×3 (07:21→19:29)
[2017-02-23] MEDS ORDERED: LACTULOSE 20 GM/30 ML UDCUP ONE (08:11)
[2017-02-23] MEDS: PANTOPRAZOLE 40 MG VIAL IV SCH ×2 (08:46→20:42)
[2017-02-23] MEDS: BUDESONIDE/FORMOTEROL 160-4.5 INHALER 6 GM INH SCH ×2 (08:46→20:42)
[2017-02-23] MEDS: LACTULOSE 20 GM/30 ML UDCUP PO PRN ×2 (08:46→16:00)
[2017-02-23] MEDS ORDERED: LACTULOSE 20 GM/30 ML UDCUP PO SCH (10:00)
--- NOTE | 2017-02-23 15:13 | Hospitalist Progress Note ---
Assessment and Plan (1) Nausea & vomiting Status: Resolved Assessment and plan: Improved now NGT out Colonoscopy with gastric antal ulcer, no evidence of gastric outlet obstruction Advance diet Would like for him to have a bowel movement before discharge Current Visit: No (2) Acute abdominal pain Status: Resolved Current Visit: No Hospitalist: Subjective Interval history: No acute events overnight. Patient is doing much better. Still no bowel movement , has been passing flatus. Exam - Constitutional Vitals: Period Temp Pulse Resp BP Sys/Gallego Pulse Ox Last 24 Hr 97.4 F-98.4 F 69-101 17-20 90-154/65-92 88-100 General appearance: normal weight - Head Head exam: Present: normocephalic, atraumatic - Eye Eye exam: Present: EOMI Pupils: Present: HEMAL - ENT ENT exam: Present: normal exam - Neck Neck exam: Present: normal inspection - Respiratory Respiratory exam: Present: clear to auscultation bilaterally. Absent: rhonchi, wheezes - Cardiovascular Cardiovascular exam: Present: regular rate and rhythm - GI/Abdominal GI/Abdominal exam: Present: normal bowel sounds, soft. Absent: tenderness, rebound - Extremities Exam Extremities exam: Present: normal inspection - Back Exam Back exam: Present: normal inspection - Neurological Exam Neurological exam: Present: alert, oriented X3 - Psychiatric Psychiatric exam: Present: normal affect, normal mood - Skin Skin exam: Present: warm, intact Results - Labs CBC & BMP: 02/20/17 06:29 02/20/17 06:29
[2017-02-24] MEDS: ALBUTEROL/IPRATROPIUM 3 ML NEB RESP TX SCH ×2 (00:05→07:30)
[2017-02-24] MEDS: LEVOFLOXACIN INJ 500 MG in PREMIX 1 EACH IV SCH (05:33)
[2017-02-24 07:55] VITALS: BP 139/92
[2017-02-24] MEDS: BUDESONIDE/FORMOTEROL 160-4.5 INHALER 6 GM INH SCH (08:28)
[2017-02-24] MEDS: PANTOPRAZOLE 40 MG VIAL IV SCH (08:29)
--- NOTE | 2017-02-24 09:09 | Physician Query Form ---
CLICK EDIT DOCUMENT TO SELECT QUERY ANSWER --> OK --> SIGN Kerline Ziegler RN, CCDS Certified Clinical Plastic Surgery Assistant W) [phone] (f) [phone] [email or web address] PROVIDERS: Make your selection(s) from the choices in EACH section by typing an "x" and enter comments in the comment section. Please use your independent medical judgment in providing your response. This request does not imply that any particular answer is desired or expected. CLINICAL INDICATORS: (Providers should not edit this section) The medical record indicates that the patient was admitted with abd pain, Urine CS is showing "staphylococcus hominis MRS", Urine Leukocytes Large, Urine WBC of 63# and the patient is on Levofloxacin. Based on the above, could you clarify the appropriate diagnosis, if significant , that supports the above abnormalities and additional evaluation, monitoring, and/or treatment rendered: ( x) Patient is being monitored or treated for UTI ( ) Patient is not being monitored or treated for UTI ( ) Other, please specify: ( ) Clinically unable to determine COMMENTS: PLEASE ALSO DOCUMENT RESPONSE IN PROGRESS NOTES AND/OR DISCHARGE SUMMARY Use of terms such as suspected, likely, or probable (associated with a specific diagnosis that is being evaluated, monitored, or treated as if it exists) are acceptable and can be restated in the discharge summary if not ruled out. MTDD
--- NOTE | 2017-02-24 09:10 | Physician Query Form ---
CLICK EDIT DOCUMENT TO SELECT QUERY ANSWER --> OK --> SIGN Kerline Ziegler RN, CCDS Certified Clinical [place]ot Agent W) [phone] (f) [phone] [email or web address] PROVIDERS: Make your selection(s) from the choices in EACH section by typing an "x" and enter comments in the comment section. Please use your independent medical judgment in providing your response. This request does not imply that any particular answer is desired or expected. CLINICAL INDICATORS: (Providers should not edit this section) The medical record indicates that the patient was admitted with abd pain, history of COPD, "Home 02 at 2 liters", the patient was admitted and placed on 2 liters per NC during stay in Hospital. Based on the above, could you clarify the appropriate diagnosis, if significant , that supports the above abnormalities and additional evaluation, monitoring, and/or treatment rendered: ( ) Patient is being monitored or treated for chronic respiratory failure (x ) Patient is not being monitored or treated for chronic respiratory failure ( ) Other, please specify: ( ) Clinically unable to determine COMMENTS: PLEASE ALSO DOCUMENT RESPONSE IN PROGRESS NOTES AND/OR DISCHARGE SUMMARY Use of terms such as suspected, likely, or probable (associated with a specific diagnosis that is being evaluated, monitored, or treated as if it exists) are acceptable and can be restated in the discharge summary if not ruled out. MTDD
--- NOTE | 2017-02-24 09:12 | Physician Query Form ---
CLICK EDIT DOCUMENT TO SELECT QUERY ANSWER --> OK --> SIGN Kerline Ziegler RN, CCDS Certified Clinical Hog Stomach Preparer W) [phone] (f) [phone] [email or web address]: Make your selection(s) from the choices in EACH section by typing an "x" and enter comments in the comment section. Please use your independent medical judgment in providing your response. This request does not imply that any particular answer is desired or expected. CLINICAL INDICATORS: (Providers should not edit this section) The medical record indicates that the patient was admitted with abd pain, EGD is showing "no evidence of gastric outlet obstruction", "gastric antral ulcer" and the patient is on a PPI. Based on the above, could you clarify the appropriate diagnosis, if significant , that supports the above abnormalities and additional evaluation, monitoring, and/or treatment rendered: ( x) Abd pain is thought to be due to acute gastric antral ulcer ( ) Abd pain is thought to be due to chronic gastric antral ulcer ( ) Abd pain is thought to be due to ( ) Other, please specify: ( ) Clinically unable to determine COMMENTS: PLEASE ALSO DOCUMENT RESPONSE IN PROGRESS NOTES AND/OR DISCHARGE SUMMARY Use of terms such as suspected, likely, or probable (associated with a specific diagnosis that is being evaluated, monitored, or treated as if it exists) are acceptable and can be restated in the discharge summary if not ruled out. MTDD
--- NOTE | 2017-02-24 10:09 | Discharge Summary ---
<Han Courtney - Last Filed: 02/24/17 09:28> Hospital Course - Hospital Course Hospital Course: This is a 71-year-old male that presented to the ED at [facility] via EMS for the evaluation of abdominal pain and flank pain. Patient has a medical history significant for congestive heart failure, hypertension, myocardial infarction, peripheral vascular disease, deep vein thrombosis, detached retina of the left eye, dyslipidemia, chronic obstructive pulmonary disease, anemia. Patient has a surgical history significant for cardiac catheterization, appendectomy, colonoscopy, prostatectomy, IVC filter placement, and removal of a skin growth from the back of his neck. The patient reports the onset of the above symptoms the morning of presentation. He reported that he started to experience nausea, vomiting, abdominal pain, and diarrhea. He reports on the day prior to presentation he ate some oatmeal, bananas and peanuts and started to vomit. He reported that the onset of abdominal pain started later on that day. He became alarmed when the episodes became more frequent and called EMS. He was subsequently transported to [facility] for further evaluation. The patient was assessed at the time of ED presentation. He was noted to have mild fever at 99.1. Labs were obtained which were essentially unremarkable.CT scan of the abdomen and pelvis was obtained which reported;distended gastric fundus and body with thickening and narrowing along the prepyloric gastric antrum. Possible stricture and developing gastric outlet obstruction is noted patient has increased pancreatic duct dilation measuring up to 22 mm in diameter findings are suggestive of possible obstruction downstream pancreatic duct calcification stone or occult pancreatic lesion. A nasogastric tube was placed in the ED. the patient was subsequently admitted to the hospitalist services for continuation of care. Empiric antibiotic coverage and aggressive fluid rehydration was initiated. A gastroenterology consultation was requested. The patient was seen in the evaluated. On February 21, 2017, the patient underwent esophagogastroduodenoscopy with biopsies of gastric ulcer; which reported gastric antral ulcer, no evidence of gastric outlet obstruction, duodenal bulb scarring related to previous peptic ulcer disease. The patient was then started on clear liquid diet and protein pump inhibitor therapy was continued. The patient's condition gradually improved and his NG tube was discontinued. A clear liquid diet was initiated and the patient tolerated it well. Upon review of the medical record , the patient had not experienced a bowel movement since admission. Digital examination was performed and the patient was noted to have a large amount of stool noted in the lower rectum. The stool was digitally removed per nursing staff. The patient's condition has remained stable. He has not experienced any significant overnight events. Today, we feel that he is indeed appropriate for discharge to follow-up with his primary care physician. Spoke with patient in great detail regarding the need to refrain from NSAID use. Discharge Plan - Discharge Data Disposition: Disch To Home/Self Care - Discharge Medications New Pantoprazole Tab [Protonix Tab] 40 mg PO DAILY #30 tablet Continue Docusate Sodium 100 mg PO DAILY Latanoprost 0.005% Oph Soln [Xalatan] 1 drop BOTH EYES BEDTIME Dorzolamide 2% Oph Soln [Trusopt] 1 drop BOTH EYES TID Brimonidine 0.15% Oph Soln [Alphagan P 0.15%] 1 drops BOTH EYES TID Betaxolol 0.5% Oph Soln [Betoptic 0.5%] 1 drop BOTH EYES BID Metoprolol Succinate Xl [Toprol Xl] 50 mg PO BID Budesonide/Formoterol 160-4.5 [Symbicort 160-4.5] 1 puff PO BID Alfuzosin [Uroxatral] 10 mg PO BEDTIME Atorvastatin [Lipitor] 20 mg PO BEDTIME Aspirin 81 mg PO DAILY Cyanocobalamin (Vitamin B-12) [Vitamin B-12] 1,000 mcg PO DAILY Albuterol/Ipratropium Neb [Duoneb] 3 ml RESP TX RT Q4H PRN PRN Reason: Shortness Of Breath/Wheezing Ipratropium/Albuterol Inhaler [Combivent Respimat Inhaler] 1 puff INH QID Folic Acid Tab 1 mg PO BEDTIME Cholecalciferol (Vitamin D3) [Vitamin D3 Chew Tab] 1,000 unit PO BID Magnesium Oxide 420 mg PO BEDTIME Lipase/Protease/Amylase [Creon 12,000 Units] 3 capsule PO TID W/MEALS Discontinued hydroCHLOROthiazide [Hydrochlorothiazide] 12.5 mg PO DAILY No Action Tiotropium Inhalation [Spiriva Handihaler] 18 mcg INH DAILY Pantoprazole Tab [Protonix Tab] 40 mg PO BID #0 Thiamine HCl 100 mg PO DAILY Simethicone 180 mg PO DAILY PRN MDD 360 PRN Reason: Gas Polyethylene Glycol Powder [Miralax] 17 gm PO DAILY Potassium Chloride Cap/Tab [K Dur] 10 meq PO BID - Follow Up or Referral - Forms/Instructions Exam - Constitutional Vitals: Period Temp Pulse Resp BP Sys/Gallego Pulse Ox Last 24 Hr 97.6 F-98.8 F 69-101 16-20 90-139/65-92 88-100 DS: Provider Date of admission: 02/20/17 03:19 Primary care physician: . No PCP Attending physician on admission: Bang Millan MD Consults: 02/20/17 03:19 Consult to Physician [CONS] Routine Comment: ho pyloric stenosis Consulting Provider: Malcolm Pathak Person Notified: AUNDREA RAHMAN Date Notified: 02/20/17 Time Notified: 08:57 02/20/17 06:41 Consult to Dietitian [CONS] Routine Reason for Dietitian: Dietary Consult Discharging clinician: Han Courtney CNP <Elen Jaeger - Last Filed: 02/24/17 10:01> Hospital Course - Time spent with patient Time with patient DS: Greater than 30 minutes (35) Diagnosis - Discharge Diagnosis (1) Nausea & vomiting Status: Resolved (2) Acute abdominal pain Status: Resolved Discharge Plan - Discharge Data Condition at Discharge: Stable Discharge Diet: heart healthy Activity: increase activity as tolerated Hygiene: no restrictions Weight Bearing at Discharge: weight bear as tolerated Driving: no restrictions Exam - Constitutional General appearance: normal weight - Head Head exam: Present: normocephalic, atraumatic - Eye Eye exam: Present: EOMI Pupils: Present: HEMAL - ENT ENT exam: Present: normal exam - Neck Neck exam: Present: normal inspection - Respiratory Respiratory exam: Present: clear to auscultation bilaterally. Absent: rhonchi, wheezes - Cardiovascular Cardiovascular exam: Present: regular rate and rhythm - GI/Abdominal GI/Abdominal exam: Present: normal bowel sounds, soft. Absent: tenderness, rebound - Extremities Exam Extremities exam: Present: normal inspection - Back Exam Back exam: Present: normal inspection - Neurological Exam Neurological exam: Present: alert, oriented X3 - Psychiatric Psychiatric exam: Present: normal affect, normal mood - Skin Skin exam: Present: warm, intact
--- NOTE | 2017-02-25 14:24 | Pathology Report from [facility] ---
[facility] ACCESSION # : [id number] PATIENT NAME : Analia Norris ORDERING DR : VIV BENSON MD CLINICAL HX: GI Bleed POST-OP DX: Gastric ulcer SPECIMEN INFO: Gastric GROSS DESCRIPTION: Received in formalin labeled LEVELMALA NORRIS is a 0.5 x 0.3 cm aggregate of coyle tissue submitted in one cassette. DIAGNOSIS FOR ANALIA NORRIS: GASTRIC ULCER, BIOPSY: Acute gastritis with mucosal ulceration and acute inflammation. No evidence of malignancy. H. pylori not seen on H&E or special stain with appropriate control. COLLECTED DATE: 02/21/2017 [facility] REPORT DATE: 02/24/2017 ELECTRONICALLY SIGNED BY: Robi Melissa III, M.D. 02/24/2017 - 9:51:35 [email or web address]
== END 2017-02-24 12:35 | disposition home or self-care (01) | DRG 384 ==
LOC: EDUNIT# → EDBD → N.ED 20:07 → N.EDINP 02-20 03:19 → SUATTDRO 02-20 03:19 → N.5E 02-20 03:49
PROVIDERS: ADMIT Internal Medicine; ATTEND Internal Medicine

== ENCOUNTER 2019-02-17 12:48 | Inpatient (IN) ==
[2019-02-17 13:36] LABS: Basophils % 0.3 % (0.0-0.8); Eosinophils % 0.2 % (0.00-10.9); Hematocrit 39.1 VOL% (42.0-52.0); Hemoglobin 12.1 GM/DL (14.0-18.0); Immature Granulocytes % 0.5 %; Immature Granulocytes Absolute 0.03 #; Lymphocytes # 1.3 10*3/uL (1.4-4.0); Mean Corpuscular HGB Conc 30.9 GM/DL (32-36); Mean Corpuscular Volume 94.2 FL (87-102); Mean Platelet Volume 12.1 FL (9.6-12.0); Monocytes % 7.4 % (1.7-12.7); Neutrophils % 71.6 % (38.7-73.9); Platelet Count 118 T/CUMM (130-400); Red Blood Count 4.15 MC/CUMM (3.8-5.5); Red Cell Distribution Width 13.2 % (9.3-17.3); White Blood Count 6.4 T/CUMM (4-12)
[2019-02-17] MEDS ORDERED: methylPREDNISolone SOD SUC 125 MG/2 ML VIAL IV STA (13:52)
[2019-02-17] MEDS ORDERED: ALBUTEROL/IPRATROPIUM 3 ML NEB RESP TX STA (13:52)
[2019-02-17] MEDS ORDERED: LEVOFLOXACIN INJ 500 MG in PREMIX 1 EACH IV STA (13:52)
[2019-02-17 13:57] LABS: Albumin 3.9 G/DL (3.4-5.0); Bilirubin,Total 0.5 MG/DL (0.2-1.0); Osmolality,Calculated 270.2 MOS/KG (273-304); Total Protein 7.8 G/DL (6.4-8.3)
[2019-02-17] MEDS ORDERED: ONDANSETRON ODT 4 MG TABLET PO ONE (16:42)
[2019-02-17] MEDS ORDERED: ONDANSETRON ODT 4 MG TABLET PO STA (17:26)
[2019-02-17] MEDS ORDERED: ACETAMINOPHEN 325 MG TABLET PO PRN (17:30)
[2019-02-17] MEDS ORDERED: ONDANSETRON 4 MG/2 ML VIAL IV PRN (20:00)
[2019-02-17] MEDS: ALBUTEROL/IPRATROPIUM 3 ML NEB RESP TX SCH (20:19)
[2019-02-17] MEDS: CHOLECALCIFEROL 1,000 UNIT TABLET PO SCH (21:38)
[2019-02-17] MEDS: POTASSIUM CHLORIDE 10 MEQ TABLET PO SCH (21:38)
[2019-02-17] MEDS: MAGNESIUM OXIDE 400 MG TABLET PO SCH (21:39)
[2019-02-17] MEDS: ATORVASTATIN 20 MG TABLET PO SCH (21:39)
[2019-02-17] MEDS: FOLIC ACID 1 MG TABLET PO SCH (21:39)
[2019-02-17] MEDS: METOPROLOL SUCCINATE XL 50 MG TABLET PO SCH (21:39)
[2019-02-17] MEDS: ALFUZOSIN 10 MG TABLET PO SCH (21:40)
[2019-02-17] MEDS: methylPREDNISolone SOD SUC 40 MG/1 ML VIAL IV SCH (21:40)
[2019-02-17] MEDS: BUDESONIDE/FORMOTEROL 160-4.5 INHALER 6 GM INH SCH (21:41)
[2019-02-17] MEDS: FLUTICASONE 50 MCG NASAL SPRAY 16 GM BOTTLE BOTH NARES SCH (21:41)
[2019-02-18] MEDS: ALBUTEROL/IPRATROPIUM 3 ML NEB RESP TX SCH ×4 (01:26→19:32)
[2019-02-18 04:51] LABS: Hematocrit 37.1 VOL% (42.0-52.0); Hemoglobin 11.3 GM/DL (14.0-18.0); Immature Granulocytes % 0.5 %; Immature Granulocytes Absolute 0.02 #; Lymphocytes # 0.6 10*3/uL (1.4-4.0); Lymphocytes % 13.5 % (21.2-54.2); Mean Corpuscular HGB Conc 30.5 GM/DL (32-36); Mean Corpuscular Volume 95.1 FL (87-102); Mean Platelet Volume 12.3 FL (9.6-12.0); Platelet Count 103 T/CUMM (130-400); Red Cell Distribution Width 13.2 % (9.3-17.3); White Blood Count 4.2 T/CUMM (4-12)
[2019-02-18 05:17] LABS: Calcium 9.1 MG/DL (8.5-10.1); Osmolality,Calculated 276.8 MOS/KG (273-304)
[2019-02-18] MEDS: methylPREDNISolone SOD SUC 40 MG/1 ML VIAL IV SCH ×3 (05:46→21:24)
[2019-02-18] MEDS: BUDESONIDE/FORMOTEROL 160-4.5 INHALER 6 GM INH SCH ×2 (09:43→21:24)
[2019-02-18] MEDS: METOPROLOL SUCCINATE XL 50 MG TABLET PO SCH ×2 (09:44→21:25)
[2019-02-18] MEDS: FLUTICASONE 50 MCG NASAL SPRAY 16 GM BOTTLE BOTH NARES SCH ×2 (09:44→21:25)
[2019-02-18] MEDS: DOCUSATE SODIUM 100 MG CAPSULE PO SCH (09:44)
[2019-02-18] MEDS: THIAMINE 100 MG TABLET PO SCH (09:45)
[2019-02-18] MEDS: CHOLECALCIFEROL 1,000 UNIT TABLET PO SCH ×2 (09:45→21:25)
[2019-02-18] MEDS: CYANOCOBALAMIN 500 MCG TABLET PO SCH (09:45)
[2019-02-18] MEDS: POTASSIUM CHLORIDE 10 MEQ TABLET PO SCH ×2 (09:45→21:25)
[2019-02-18] MEDS: PANTOPRAZOLE 40 MG TABLET PO SCH (09:45)
[2019-02-18 11:15] LABS: Apearance,Urine CLEAR (Clear); Bacteria,Urine Many /HPF (Few); Bilirubin,Urine Negative (Negative); Blood, Urine Moderate mg/dL (Negative); Glucose,Urine (UA) Negative (Negative); Ketones,Urine 20 mg/dL (Negative); Mucus,Urine Occasional /LPF (Occasional); Nitrite,Urine Negative (Negative); Protein,Urine Negative; RBC,Urine 3 /HPF (0-4); Squamous Epithelial Cell,Urine Occasional /HPF (0-10); Urine Color Yellow (Yellow); Urine Specific Gravity 1.013 (1.001-1.035); Urine Urobilinogen < 2.0 EU/DL (0.2-1.0); WBC,Urine 28 /HPF (0-6)
[2019-02-18] MEDS: LEVOFLOXACIN INJ 750 MG in PREMIX 1 EACH IV SCH (18:05)
[2019-02-18] MEDS: MAGNESIUM OXIDE 400 MG TABLET PO SCH (21:25)
[2019-02-18] MEDS: FOLIC ACID 1 MG TABLET PO SCH (21:25)
[2019-02-18] MEDS: ATORVASTATIN 20 MG TABLET PO SCH (21:25)
[2019-02-18] MEDS: ALFUZOSIN 10 MG TABLET PO SCH (21:25)
[2019-02-19] MEDS: ALBUTEROL/IPRATROPIUM 3 ML NEB RESP TX SCH ×4 (00:31→19:10)
[2019-02-19] MEDS: methylPREDNISolone SOD SUC 40 MG/1 ML VIAL IV SCH ×3 (05:47→21:50)
[2019-02-19] MEDS: FLUTICASONE 50 MCG NASAL SPRAY 16 GM BOTTLE BOTH NARES SCH ×2 (09:10→21:49)
[2019-02-19] MEDS: BUDESONIDE/FORMOTEROL 160-4.5 INHALER 6 GM INH SCH ×2 (09:10→21:49)
[2019-02-19] MEDS: METOPROLOL SUCCINATE XL 50 MG TABLET PO SCH ×2 (09:11→21:50)
[2019-02-19] MEDS: CHOLECALCIFEROL 1,000 UNIT TABLET PO SCH ×2 (09:12→21:50)
[2019-02-19] MEDS: CYANOCOBALAMIN 500 MCG TABLET PO SCH (09:13)
[2019-02-19] MEDS: THIAMINE 100 MG TABLET PO SCH (09:13)
[2019-02-19] MEDS: DOCUSATE SODIUM 100 MG CAPSULE PO SCH (09:13)
[2019-02-19] MEDS: POTASSIUM CHLORIDE 10 MEQ TABLET PO SCH ×2 (09:13→21:49)
[2019-02-19] MEDS: PANTOPRAZOLE 40 MG TABLET PO SCH (09:13)
[2019-02-19] MEDS: BENZONATATE 100 MG CAPSULE PO PRN (11:22)
[2019-02-19] MEDS: LEVOFLOXACIN INJ 750 MG in PREMIX 1 EACH IV SCH (18:00)
[2019-02-19] MEDS: MAGNESIUM OXIDE 400 MG TABLET PO SCH (21:49)
[2019-02-19] MEDS: ATORVASTATIN 20 MG TABLET PO SCH (21:49)
[2019-02-19] MEDS: FOLIC ACID 1 MG TABLET PO SCH (21:50)
[2019-02-19] MEDS: ALFUZOSIN 10 MG TABLET PO SCH (21:50)
[2019-02-20] MEDS: ALBUTEROL/IPRATROPIUM 3 ML NEB RESP TX SCH ×2 (00:30→07:49)
[2019-02-20] MEDS: methylPREDNISolone SOD SUC 40 MG/1 ML VIAL IV SCH (05:31)
[2019-02-20] MEDS: BUDESONIDE/FORMOTEROL 160-4.5 INHALER 6 GM INH SCH (08:50)
[2019-02-20] MEDS: FLUTICASONE 50 MCG NASAL SPRAY 16 GM BOTTLE BOTH NARES SCH (08:50)
[2019-02-20] MEDS: BENZONATATE 100 MG CAPSULE PO PRN (08:51)
[2019-02-20] MEDS: DOCUSATE SODIUM 100 MG CAPSULE PO SCH (08:51)
[2019-02-20] MEDS: POTASSIUM CHLORIDE 10 MEQ TABLET PO SCH (08:51)
[2019-02-20] MEDS: CHOLECALCIFEROL 1,000 UNIT TABLET PO SCH (08:51)
[2019-02-20] MEDS: METOPROLOL SUCCINATE XL 50 MG TABLET PO SCH (08:51)
[2019-02-20] MEDS: CYANOCOBALAMIN 500 MCG TABLET PO SCH (08:52)
[2019-02-20] MEDS: THIAMINE 100 MG TABLET PO SCH (08:52)
[2019-02-20] MEDS: PANTOPRAZOLE 40 MG TABLET PO SCH (08:52)
[2019-02-20] MEDS ORDERED: LEVOFLOXACIN 750 MG TABLET PO SCH (09:00)
[2019-02-20] MEDS ORDERED: predniSONE 10 MG TABLET PO SCH (09:00)
[2019-02-20 13:46] VITALS: BP 122/76
== END 2019-02-20 13:53 | disposition home or self-care (01) | DRG 190 ==
LOC: EDUNIT# → EDBD → N.ED 12:48 → SUATTDRO 17:25 → N.5E 17:25
PROVIDERS: ADMIT Internal Medicine; ATTEND Emergency Medicine

== ENCOUNTER 2019-02-22 03:15 | Inpatient (IN) ==
[2019-02-22] MEDS ORDERED: ALBUTEROL/IPRATROPIUM 3 ML NEB RESP TX STA (03:20)
[2019-02-22] MEDS ORDERED: methylPREDNISolone SOD SUC 125 MG/2 ML VIAL IV STA (03:20)
[2019-02-22 03:43] LABS: Basophils % 0.1 % (0.0-0.8); Hemoglobin 12.4 GM/DL (14.0-18.0); Immature Granulocytes % 0.4 %; Immature Granulocytes Absolute 0.04 #; Lymphocytes # 0.6 10*3/uL (1.4-4.0); Lymphocytes % 5.9 % (21.2-54.2); Mean Corpuscular HGB Conc 30.2 GM/DL (32-36); Mean Corpuscular Volume 95.3 FL (87-102); Mean Platelet Volume 11.7 FL (9.6-12.0); Monocytes % 5.4 % (1.7-12.7); Neutrophils % 88.2 % (38.7-73.9); Platelet Count 131 T/CUMM (130-400); Red Cell Distribution Width 13.1 % (9.3-17.3); White Blood Count 10.1 T/CUMM (4-12)
[2019-02-22 04:04] LABS: Bilirubin,Total 0.5 MG/DL (0.2-1.0); Calcium 8.5 MG/DL (8.5-10.1); Osmolality,Calculated 271.5 MOS/KG (273-304)
[2019-02-22] MEDS ORDERED: ACETAMINOPHEN 325 MG TABLET PO PRN (05:50)
[2019-02-22] MEDS ORDERED: DOCUSATE SODIUM 100 MG CAPSULE PO PRN (05:50)
[2019-02-22] MEDS: SODIUM CHLORIDE 0.9% 1,000 ML IV SCH (06:16)
[2019-02-22] MEDS: ENOXAPARIN 40 MG/0.4 ML SYRINGE SUBCUT SCH (06:28)
[2019-02-22] MEDS: ALBUTEROL/IPRATROPIUM 3 ML NEB RESP TX SCH ×5 (06:49→22:36)
[2019-02-22] MEDS ORDERED: IPRATROPIUM 500 MCG/2.5 ML NEB RESP TX SCH (07:00)
[2019-02-22] MEDS: AZITHROMYCIN 250 MG TABLET PO SCH (08:09)
[2019-02-22] MEDS: PANTOPRAZOLE 40 MG TABLET PO SCH (08:09)
[2019-02-22] MEDS: MONTELUKAST 10 MG TABLET PO SCH ×2 (09:52→22:32)
[2019-02-22] MEDS ORDERED: AMINOPHYLLINE 250 MG in SODIUM CHLORIDE 0.9% 100 ML IV ONE (14:00)
[2019-02-22] MEDS: methylPREDNISolone SOD SUC 40 MG/1 ML VIAL IV SCH ×2 (14:34→22:28)
[2019-02-22] MEDS ORDERED: AMINOPHYLLINE 500 MG in SODIUM CHLORIDE 0.9% 480 ML IV SCH (18:30)
[2019-02-22] MEDS: ALFUZOSIN 10 MG TABLET PO SCH (22:31)
[2019-02-22] MEDS: ATORVASTATIN 20 MG TABLET PO SCH (22:32)
[2019-02-23] MEDS: ALBUTEROL/IPRATROPIUM 3 ML NEB RESP TX SCH ×6 (02:37→23:50)
[2019-02-23] MEDS: methylPREDNISolone SOD SUC 40 MG/1 ML VIAL IV SCH ×3 (05:16→22:55)
[2019-02-23 06:18] LABS: Hematocrit 35.2 VOL% (42.0-52.0); Hemoglobin 10.8 GM/DL (14.0-18.0); Immature Granulocytes % 0.4 %; Immature Granulocytes Absolute 0.02 #; Lymphocytes # 0.3 10*3/uL (1.4-4.0); Mean Corpuscular HGB Conc 30.7 GM/DL (32-36); Mean Corpuscular Volume 94.9 FL (87-102); Mean Platelet Volume 11.9 FL (9.6-12.0); Neutrophils % 90.6 % (38.7-73.9); Platelet Count 94 T/CUMM (130-400); Red Blood Count 3.71 MC/CUMM (3.8-5.5); Red Cell Distribution Width 13.2 % (9.3-17.3)
[2019-02-23 06:43] LABS: Eosinophils 1 % (0-10); Hypochromasia 1+; Lymphocytes 1 % (20-55); Ovalocytes Slight; Platelet Estimate Decreased; Segmented Neutrophils 96 % (50-85); Total Cells Counted 100
[2019-02-23 06:53] LABS: Calcium 8.6 MG/DL (8.5-10.1); Osmolality,Calculated 283.4 MOS/KG (273-304)
[2019-02-23] MEDS: ENOXAPARIN 40 MG/0.4 ML SYRINGE SUBCUT SCH (08:21)
[2019-02-23] MEDS: MONTELUKAST 10 MG TABLET PO SCH ×2 (08:21→23:01)
[2019-02-23] MEDS: PANTOPRAZOLE 40 MG TABLET PO SCH (08:21)
[2019-02-23] MEDS: AZITHROMYCIN 250 MG TABLET PO SCH (08:21)
[2019-02-23] MEDS: THEOPHYLLINE ER 300 MG TABLET PO SCH ×2 (14:09→17:25)
[2019-02-23] MEDS: POLYETHYLENE GLYCOL POWDER 17 GM PACK PO SCH (14:09)
[2019-02-23] MEDS: METOPROLOL SUCCINATE XL 50 MG TABLET PO SCH ×2 (14:09→23:00)
[2019-02-23] MEDS: SODIUM CHLORIDE 0.9% 1,000 ML IV SCH (14:13)
[2019-02-23] MEDS ORDERED: METOPROLOL SUCCINATE XL 50 MG TABLET PO SCH (21:00)
[2019-02-23] MEDS: ATORVASTATIN 20 MG TABLET PO SCH (23:00)
[2019-02-23] MEDS: ALFUZOSIN 10 MG TABLET PO SCH (23:00)
[2019-02-23] MEDS: DOCUSATE/SENNA 50-8.6 MG TABLET PO SCH (23:01)
[2019-02-24] MEDS: ALBUTEROL/IPRATROPIUM 3 ML NEB RESP TX SCH ×6 (04:02→23:40)
[2019-02-24] MEDS: methylPREDNISolone SOD SUC 40 MG/1 ML VIAL IV SCH ×3 (05:34→20:45)
[2019-02-24 06:02] LABS: Hematocrit 33.7 VOL% (42.0-52.0); Hemoglobin 10.2 GM/DL (14.0-18.0); Immature Granulocytes % 0.3 %; Immature Granulocytes Absolute 0.02 #; Lymphocytes # 0.2 10*3/uL (1.4-4.0); Lymphocytes % 3.5 % (21.2-54.2); Mean Corpuscular HGB Conc 30.3 GM/DL (32-36); Mean Corpuscular Volume 97.1 FL (87-102); Mean Platelet Volume 12.7 FL (9.6-12.0); Monocytes % 2.8 % (1.7-12.7); Neutrophils % 93.4 % (38.7-73.9); Platelet Count 91 T/CUMM (130-400); Red Blood Count 3.47 MC/CUMM (3.8-5.5); Red Cell Distribution Width 13.4 % (9.3-17.3); White Blood Count 6.8 T/CUMM (4-12)
[2019-02-24 06:28] LABS: Band Neutrophils 1 % (0-10); Hypochromasia 1+; Lymphocytes 2 % (20-55); Platelet Estimate Decreased; Segmented Neutrophils 95 % (50-85); Total Cells Counted 100
[2019-02-24] MEDS: PANTOPRAZOLE 40 MG TABLET PO SCH (08:30)
[2019-02-24] MEDS: MONTELUKAST 10 MG TABLET PO SCH ×2 (08:31→20:44)
[2019-02-24] MEDS: AZITHROMYCIN 250 MG TABLET PO SCH (08:31)
[2019-02-24] MEDS: DOCUSATE/SENNA 50-8.6 MG TABLET PO SCH ×2 (08:32→20:44)
[2019-02-24] MEDS: POLYETHYLENE GLYCOL POWDER 17 GM PACK PO SCH (08:32)
[2019-02-24] MEDS: THEOPHYLLINE ER 300 MG TABLET PO SCH ×2 (08:32→17:22)
[2019-02-24] MEDS: METOPROLOL SUCCINATE XL 50 MG TABLET PO SCH ×2 (08:33→20:44)
[2019-02-24] MEDS: ATORVASTATIN 20 MG TABLET PO SCH (20:44)
[2019-02-24] MEDS: ALFUZOSIN 10 MG TABLET PO SCH (20:44)
[2019-02-25] MEDS: ALBUTEROL/IPRATROPIUM 3 ML NEB RESP TX SCH ×3 (03:10→10:33)
[2019-02-25 05:27] LABS: Basophils % 0.1 % (0.0-0.8); Hematocrit 35.9 VOL% (42.0-52.0); Hemoglobin 10.8 GM/DL (14.0-18.0); Immature Granulocytes % 0.6 %; Immature Granulocytes Absolute 0.05 #; Lymphocytes # 0.3 10*3/uL (1.4-4.0); Lymphocytes % 3.9 % (21.2-54.2); Mean Corpuscular HGB Conc 30.1 GM/DL (32-36); Mean Corpuscular Volume 96.2 FL (87-102); Mean Platelet Volume 11.9 FL (9.6-12.0); Neutrophils % 91.4 % (38.7-73.9); Platelet Count 102 T/CUMM (130-400); Red Blood Count 3.73 MC/CUMM (3.8-5.5); Red Cell Distribution Width 13.2 % (9.3-17.3); White Blood Count 7.9 T/CUMM (4-12)
[2019-02-25 05:35] LABS: Calcium 8.5 MG/DL (8.5-10.1); Osmolality,Calculated 279.7 MOS/KG (273-304)
[2019-02-25] MEDS: methylPREDNISolone SOD SUC 40 MG/1 ML VIAL IV SCH (05:48)
[2019-02-25 05:50] LABS: Hypochromasia 1+; Lymphocytes 6 % (20-55); Platelet Estimate Decreased; Segmented Neutrophils 90 % (50-85); Total Cells Counted 100
[2019-02-25] MEDS: POLYETHYLENE GLYCOL POWDER 17 GM PACK PO SCH (08:31)
[2019-02-25] MEDS: THEOPHYLLINE ER 300 MG TABLET PO SCH (08:32)
[2019-02-25] MEDS: MONTELUKAST 10 MG TABLET PO SCH (08:32)
[2019-02-25] MEDS: AZITHROMYCIN 250 MG TABLET PO SCH (08:32)
[2019-02-25] MEDS: METOPROLOL SUCCINATE XL 50 MG TABLET PO SCH (08:33)
[2019-02-25] MEDS: DOCUSATE/SENNA 50-8.6 MG TABLET PO SCH (08:33)
[2019-02-25] MEDS ORDERED: TUBERCULIN SKIN TEST 0.1 ML SYRINGE INTRADERM ONE (09:55)
[2019-02-25] MEDS: PANTOPRAZOLE 40 MG TABLET PO SCH (10:35)
[2019-02-25] MEDS: THEOPHYLLINE ER (24 HR) 200 MG CAPSULE PO SCH ×2 (10:43→11:40)
[2019-02-25 12:28] VITALS: BP 141/81
[2019-02-25] MEDS ORDERED: predniSONE 20 MG TABLET PO SCH (21:00)
== END 2019-02-25 13:30 | disposition swing bed (61) | DRG 191 ==
LOC: EDUNIT# → N.ED 03:15 → SUATTDRO 05:50 → N.EDINP 05:50 → N.2E 06:48
PROVIDERS: ADMIT Internal Medicine; ATTEND Internal Medicine Nephrology

== ENCOUNTER 2019-07-17 08:19 | Inpatient (IN) ==
[2019-07-17] MEDS ORDERED: LEVOFLOXACIN INJ 750 MG in PREMIX 1 EACH IV STA (08:57)
[2019-07-17] MEDS ORDERED: methylPREDNISolone SOD SUC 125 MG/2 ML VIAL IV STA (08:57)
[2019-07-17] MEDS ORDERED: FUROSEMIDE 40 MG/4 ML VIAL IV STA (08:57)
[2019-07-17] MEDS ORDERED: ONDANSETRON 4 MG/2 ML VIAL IV STA (08:57)
[2019-07-17] MEDS ORDERED: ALBUTEROL 2.5 MG/3 ML NEB RESP TX SCH (09:00)
[2019-07-17 10:17] LABS: Basophils % 0.2 % (0.0-0.8); Hematocrit 40.4 VOL% (42.0-52.0); Immature Granulocytes % 0.6 %; Immature Granulocytes Absolute 0.04 #; Lymphocytes # 0.5 10*3/uL (1.4-4.0); Lymphocytes % 7.8 % (21.2-54.2); Mean Corpuscular Volume 102.5 FL (87-102); Mean Platelet Volume 12.5 FL (9.6-12.0); NRBC # 0.04 10*3/uL; Neutrophils % 67.4 % (38.7-73.9); Platelet Count 108 T/CUMM (130-400); Red Blood Count 3.94 MC/CUMM (3.8-5.5); White Blood Count 6.2 T/CUMM (4-12)
[2019-07-17 10:19] LABS: Hemoglobin 11.7 GM/DL (14.0-18.0)
[2019-07-17 10:28] LABS: INR 0.9; PT Patient Result 9.9 SECS (9.6-12.2); Partial Thromboplastin Time 25.4 SECS (20.8-36.0)
[2019-07-17 10:53] LABS: Alanine Aminotransferase 15 U/L (16-61); Alkaline Phosphatase 53 U/L (45-117); Aspartate Amino Transferase 23 U/L (0-37); Blood Urea Nitrogen 28 MG/DL (7-18); Calcium 8.8 MG/DL (8.5-10.1); Estimated Glom Filtration Rate 96 ML/MIN; Glucose 112 MG/DL (74-106); Troponin I < 0.015 NG/ML (0.00-0.045)
[2019-07-17 11:23] LABS: Band Neutrophils 11 % (0-10); Hypochromasia 1+; Lymphocytes 10 % (20-55); Platelet Estimate Decreased; Segmented Neutrophils 55 % (50-85); Total Cells Counted 100
[2019-07-17] MEDS ORDERED: PROMETHAZINE 25 MG/1 ML VIAL IM PRN (11:37)
[2019-07-17] MEDS ORDERED: ALBUTEROL/IPRATROPIUM 3 ML NEB RESP TX STA (11:40)
[2019-07-17] MEDS ORDERED: LEVOFLOXACIN INJ 750 MG in PREMIX 1 EACH IV SCH (12:00)
[2019-07-17] MEDS ORDERED: ENOXAPARIN 40 MG/0.4 ML SYRINGE SUBCUT SCH (12:00)
[2019-07-17] MEDS ORDERED: ALBUTEROL/IPRATROPIUM 3 ML NEB RESP TX SCH (13:00)
[2019-07-17] MEDS ORDERED: SIMETHICONE CHEW 80 MG TABLET PO PRN (14:04)
[2019-07-17] MEDS ORDERED: ALBUTEROL 2.5 MG/3 ML NEB RESP TX PRN (14:04)
[2019-07-17 14:07] LABS: Apearance,Urine Slightly Hazy (Clear); Bacteria,Urine Many /HPF (Few); Bilirubin,Urine Negative (Negative); Blood, Urine Small mg/dL (Negative); Glucose,Urine (UA) Negative (Negative); Hyaline Casts,Urine 19 /LPF (0-3); Ketones,Urine 5 mg/dL (Negative); Mucus,Urine Occasional /LPF (Occasional); Nitrite,Urine Negative (Negative); Protein,Urine Negative; RBC,Urine 2 /HPF (0-4); Squamous Epithelial Cell,Urine Occasional /HPF (0-10); Urine Color Yellow (Yellow); Urine Specific Gravity 1.009 (1.001-1.035); Urine Urobilinogen < 2.0 EU/DL (0.2-1.0); WBC,Urine 5 /HPF (0-6)
[2019-07-17] MEDS: PANTOPRAZOLE 40 MG TABLET PO SCH ×2 (14:11→18:39)
[2019-07-17 14:17] LABS: Barbiturates Screen,Urine Negative (Negative); Benzodiazepines Screen,Urine Negative (Negative); Cannabinoid Screen,Urine Negative (Negative); Opiate Screen,Urine Negative (Negative); Phencyclidine Screen,Urine Negative (Negative)
[2019-07-17] MEDS ORDERED: BRIMONIDINE 0.15% OPH SOLN 1 DROP/DROPS BOTTLE BOTH EYES SCH (15:00)
[2019-07-17] MEDS: methylPREDNISolone SOD SUC 125 MG/2 ML VIAL IV SCH ×2 (15:18→20:45)
[2019-07-17] MEDS: BUDESONIDE 0.5 MG/2 ML NEB RESP TX SCH ×2 (15:44→20:09)
[2019-07-17] MEDS: ALBUTEROL/IPRATROPIUM 3 ML NEB RESP TX SCH ×3 (15:44→22:46)
[2019-07-17] MEDS: DORNASE ALFA 2.5 MG/2.5 ML VIAL RESP TX SCH ×2 (15:52→20:09)
[2019-07-17] MEDS ORDERED: FUROSEMIDE 40 MG/4 ML VIAL IV SCH (16:00)
[2019-07-17] MEDS: TAMSULOSIN 0.4 MG CAPSULE PO SCH (17:10)
[2019-07-17] MEDS: LIPASE PROTEASE AMYLASE PO SCH (18:39)
[2019-07-17] MEDS: BETAXOLOL BOTH EYES SCH (20:45)
[2019-07-17] MEDS: MAGNESIUM OXIDE 400 MG TABLET PO SCH (20:45)
[2019-07-17] MEDS: CHOLECALCIFEROL 1,000 UNIT TABLET PO SCH (20:45)
[2019-07-17] MEDS: ATORVASTATIN 20 MG TABLET PO SCH (20:45)
[2019-07-17] MEDS: BRIMONIDINE 0.2% OPH SOLN 5 ML BOTTLE BOTH EYES SCH (20:45)
[2019-07-17] MEDS: LATANOPROST 0.005% OPH SOLN 2.5 ML BOTTLE BOTH EYES SCH (20:46)
[2019-07-17] MEDS: CALCIUM (CARBONATE) 500 MG TABLET PO SCH (20:46)
[2019-07-18] MEDS: methylPREDNISolone SOD SUC 125 MG/2 ML VIAL IV SCH ×2 (02:39→10:33)
[2019-07-18] MEDS: ALBUTEROL/IPRATROPIUM 3 ML NEB RESP TX SCH ×2 (02:40→08:02)
[2019-07-18 05:20] LABS: Hematocrit 33.1 VOL% (42.0-52.0); Hemoglobin 10.1 GM/DL (14.0-18.0); Immature Granulocytes % 0.3 %; Immature Granulocytes Absolute 0.01 #; Lymphocytes # 0.1 10*3/uL (1.4-4.0); Lymphocytes % 3.8 % (21.2-54.2); Mean Corpuscular HGB Conc 30.5 GM/DL (32-36); Mean Corpuscular Volume 98.2 FL (87-102); Mean Platelet Volume 12.5 FL (9.6-12.0); Monocytes % 5.5 % (1.7-12.7); NRBC # 0.02 10*3/uL; Neutrophils % 90.4 % (38.7-73.9); Red Blood Count 3.37 MC/CUMM (3.8-5.5); Red Cell Distribution Width 12.4 % (9.3-17.3); White Blood Count 3.4 T/CUMM (4-12)
[2019-07-18 05:24] LABS: Platelet Count 87 T/CUMM (130-400)
[2019-07-18 05:50] LABS: Albumin 2.7 G/DL (3.4-5.0); Bilirubin,Total 0.7 MG/DL (0.2-1.0); Calcium 8.3 MG/DL (8.5-10.1); Osmolality,Calculated 283.7 MOS/KG (273-304); Risk Ratio 1.6; Thyroid Stimulating Hormone 0.138 uIU/ml (0.358-3.74); Total Protein 6.1 G/DL (6.4-8.3); VLDL CHOLESTEROL 11.2 MG/DL
[2019-07-18 06:12] LABS: Band Neutrophils 4 % (0-10); Hypochromasia Slight; Lymphocytes 9 % (20-55); Platelet Estimate Decreased; Segmented Neutrophils 84 % (50-85); Total Cells Counted 100
[2019-07-18] MEDS: ACETAMINOPHEN 325 MG TABLET PO PRN ×2 (07:52→21:38)
[2019-07-18] MEDS: BUDESONIDE 0.5 MG/2 ML NEB RESP TX SCH ×2 (08:46→20:11)
[2019-07-18] MEDS: DORNASE ALFA 2.5 MG/2.5 ML VIAL RESP TX SCH ×2 (08:54→20:11)
[2019-07-18] MEDS ORDERED: NON-FORMULARY MEDICATION (Tiotropium Bromide [Spiriva With Handihaler] 18 MCG) INH SCH (09:00)
[2019-07-18] MEDS: NEBIVOLOL 5 MG TABLET PO SCH (10:31)
[2019-07-18] MEDS: CALCIUM (CARBONATE) 500 MG TABLET PO SCH ×2 (10:32→21:39)
[2019-07-18] MEDS: MAGNESIUM OXIDE 400 MG TABLET PO SCH ×2 (10:32→21:39)
[2019-07-18] MEDS: CHOLECALCIFEROL 1,000 UNIT TABLET PO SCH ×2 (10:32→21:39)
[2019-07-18] MEDS: POTASSIUM CHLORIDE 10 MEQ TABLET PO SCH (10:32)
[2019-07-18] MEDS: PANTOPRAZOLE 40 MG TABLET PO SCH (10:32)
[2019-07-18] MEDS: MONTELUKAST 10 MG TABLET PO SCH (10:32)
[2019-07-18] MEDS: THIAMINE 100 MG TABLET PO SCH (10:33)
[2019-07-18] MEDS: BRIMONIDINE 0.2% OPH SOLN 5 ML BOTTLE BOTH EYES SCH ×3 (10:33→21:37)
[2019-07-18] MEDS: LEVOFLOXACIN INJ 750 MG in PREMIX 1 EACH IV SCH (10:43)
[2019-07-18] MEDS: BETAXOLOL BOTH EYES SCH ×3 (11:32→21:37)
[2019-07-18] MEDS: LIPASE PROTEASE AMYLASE PO SCH ×3 (11:32→17:20)
[2019-07-18] MEDS: DOCUSATE SODIUM 100 MG CAPSULE PO PRN (12:14)
[2019-07-18] MEDS: ALBUTEROL 1.25 MG/3 ML NEB RESP TX SCH ×2 (13:39→20:11)
[2019-07-18] MEDS: TAMSULOSIN 0.4 MG CAPSULE PO SCH (17:21)
[2019-07-18] MEDS: methylPREDNISolone SOD SUC 40 MG/1 ML VIAL IV SCH (17:21)
[2019-07-18] MEDS: LATANOPROST 0.005% OPH SOLN 2.5 ML BOTTLE BOTH EYES SCH (21:38)
[2019-07-18] MEDS: ATORVASTATIN 20 MG TABLET PO SCH (21:39)
[2019-07-19] MEDS: methylPREDNISolone SOD SUC 40 MG/1 ML VIAL IV SCH ×3 (01:59→21:10)
[2019-07-19] MEDS: ALBUTEROL 1.25 MG/3 ML NEB RESP TX SCH ×4 (02:14→20:40)
[2019-07-19 06:37] LABS: Basophils % 0.1 % (0.0-0.8); Hematocrit 33.7 VOL% (42.0-52.0); Hemoglobin 10.3 GM/DL (14.0-18.0); Immature Granulocytes % 0.8 %; Immature Granulocytes Absolute 0.07 #; Lymphocytes # 0.3 10*3/uL (1.4-4.0); Lymphocytes % 3.1 % (21.2-54.2); Mean Corpuscular HGB Conc 30.6 GM/DL (32-36); Mean Corpuscular Volume 98.3 FL (87-102); Mean Platelet Volume 11.9 FL (9.6-12.0); Monocytes % 7.7 % (1.7-12.7); NRBC # 0.03 10*3/uL; Neutrophils % 88.3 % (38.7-73.9); Red Blood Count 3.43 MC/CUMM (3.8-5.5); Red Cell Distribution Width 12.8 % (9.3-17.3); White Blood Count 8.8 T/CUMM (4-12)
[2019-07-19 06:38] LABS: Platelet Count 92 T/CUMM (130-400)
[2019-07-19 06:55] LABS: Calcium 8.5 MG/DL (8.5-10.1); Osmolality,Calculated 281.5 MOS/KG (273-304)
[2019-07-19 06:56] LABS: Band Neutrophils 2 % (0-10); Hypochromasia 1+; Lymphocytes 2 % (20-55); Platelet Estimate Decreased; Segmented Neutrophils 90 % (50-85); Total Cells Counted 100
[2019-07-19] MEDS: BUDESONIDE 0.5 MG/2 ML NEB RESP TX SCH ×2 (07:32→20:40)
[2019-07-19] MEDS: DORNASE ALFA 2.5 MG/2.5 ML VIAL RESP TX SCH ×2 (07:32→20:40)
[2019-07-19] MEDS: BETAXOLOL BOTH EYES SCH ×3 (08:51→21:11)
[2019-07-19] MEDS: THIAMINE 100 MG TABLET PO SCH (08:52)
[2019-07-19] MEDS: LIPASE PROTEASE AMYLASE PO SCH ×3 (08:52→18:00)
[2019-07-19] MEDS: PANTOPRAZOLE 40 MG TABLET PO SCH (08:52)
[2019-07-19] MEDS: BRIMONIDINE 0.2% OPH SOLN 5 ML BOTTLE BOTH EYES SCH ×3 (08:52→21:11)
[2019-07-19] MEDS: CALCIUM (CARBONATE) 500 MG TABLET PO SCH ×2 (08:52→21:11)
[2019-07-19] MEDS: POTASSIUM CHLORIDE 10 MEQ TABLET PO SCH (08:53)
[2019-07-19] MEDS: CHOLECALCIFEROL 1,000 UNIT TABLET PO SCH ×2 (08:53→21:11)
[2019-07-19] MEDS: DOCUSATE SODIUM 100 MG CAPSULE PO PRN (08:53)
[2019-07-19] MEDS: NEBIVOLOL 5 MG TABLET PO SCH (08:53)
[2019-07-19] MEDS: MAGNESIUM OXIDE 400 MG TABLET PO SCH ×2 (08:54→21:11)
[2019-07-19] MEDS: LEVOFLOXACIN INJ 750 MG in PREMIX 1 EACH IV SCH (08:54)
[2019-07-19] MEDS: MONTELUKAST 10 MG TABLET PO SCH (08:54)
[2019-07-19] MEDS ORDERED: NEBIVOLOL 5 MG TABLET PO ONE (13:34)
[2019-07-19] MEDS: TAMSULOSIN 0.4 MG CAPSULE PO SCH (18:07)
[2019-07-19] MEDS: LATANOPROST 0.005% OPH SOLN 2.5 ML BOTTLE BOTH EYES SCH (21:11)
[2019-07-19] MEDS: ATORVASTATIN 20 MG TABLET PO SCH (21:11)
[2019-07-20] MEDS: ALBUTEROL 1.25 MG/3 ML NEB RESP TX SCH ×4 (01:20→19:54)
[2019-07-20 05:29] LABS: Basophils % 0.1 % (0.0-0.8); Hematocrit 33.7 VOL% (42.0-52.0); Hemoglobin 10.1 GM/DL (14.0-18.0); Immature Granulocytes % 1.7 %; Immature Granulocytes Absolute 0.13 #; Lymphocytes # 0.3 10*3/uL (1.4-4.0); Lymphocytes % 3.4 % (21.2-54.2); Mean Corpuscular Volume 98.5 FL (87-102); Mean Platelet Volume 11.2 FL (9.6-12.0); Monocytes % 4.9 % (1.7-12.7); Neutrophils % 89.9 % (38.7-73.9); Red Blood Count 3.42 MC/CUMM (3.8-5.5); Red Cell Distribution Width 12.8 % (9.3-17.3); White Blood Count 7.6 T/CUMM (4-12)
[2019-07-20 05:33] LABS: Platelet Count 95 T/CUMM (130-400)
[2019-07-20 05:50] LABS: Lymphocytes 4 % (20-55); Platelet Estimate Decreased; Polychromasia Few; Segmented Neutrophils 93 % (50-85); Total Cells Counted 100
[2019-07-20 06:01] LABS: Calcium 8.4 MG/DL (8.5-10.1); Osmolality,Calculated 284.3 MOS/KG (273-304)
[2019-07-20] MEDS: BUDESONIDE 0.5 MG/2 ML NEB RESP TX SCH ×2 (07:50→19:54)
[2019-07-20] MEDS: DORNASE ALFA 2.5 MG/2.5 ML VIAL RESP TX SCH ×2 (07:55→20:04)
[2019-07-20] MEDS: BETAXOLOL BOTH EYES SCH ×3 (09:40→21:56)
[2019-07-20] MEDS: LIPASE PROTEASE AMYLASE PO SCH ×3 (09:40→16:15)
[2019-07-20] MEDS: BRIMONIDINE 0.2% OPH SOLN 5 ML BOTTLE BOTH EYES SCH ×3 (09:41→21:56)
[2019-07-20] MEDS: LEVOFLOXACIN INJ 750 MG in PREMIX 1 EACH IV SCH (09:41)
[2019-07-20] MEDS: methylPREDNISolone SOD SUC 40 MG/1 ML VIAL IV SCH (09:42)
[2019-07-20] MEDS: MAGNESIUM OXIDE 400 MG TABLET PO SCH ×2 (09:43→21:54)
[2019-07-20] MEDS: PANTOPRAZOLE 40 MG TABLET PO SCH (09:43)
[2019-07-20] MEDS: THIAMINE 100 MG TABLET PO SCH (09:43)
[2019-07-20] MEDS: CALCIUM (CARBONATE) 500 MG TABLET PO SCH ×2 (09:43→21:54)
[2019-07-20] MEDS: POTASSIUM CHLORIDE 10 MEQ TABLET PO SCH (09:43)
[2019-07-20] MEDS: MONTELUKAST 10 MG TABLET PO SCH (09:43)
[2019-07-20] MEDS: CHOLECALCIFEROL 1,000 UNIT TABLET PO SCH ×2 (09:43→21:54)
[2019-07-20] MEDS: TAMSULOSIN 0.4 MG CAPSULE PO SCH (17:06)
[2019-07-20] MEDS: ATORVASTATIN 20 MG TABLET PO SCH (21:54)
[2019-07-20] MEDS: LATANOPROST 0.005% OPH SOLN 2.5 ML BOTTLE BOTH EYES SCH (21:59)
[2019-07-21] MEDS: ALBUTEROL 1.25 MG/3 ML NEB RESP TX SCH ×2 (01:10→07:25)
[2019-07-21 05:00] LABS: Basophils % 0.2 % (0.0-0.8); Hemoglobin 10.4 GM/DL (14.0-18.0); Immature Granulocytes Absolute 0.27 #; Lymphocytes # 0.6 10*3/uL (1.4-4.0); Lymphocytes % 6.7 % (21.2-54.2); Mean Corpuscular HGB Conc 29.7 GM/DL (32-36); Mean Corpuscular Volume 98.6 FL (87-102); Mean Platelet Volume 10.9 FL (9.6-12.0); Monocytes % 11.2 % (1.7-12.7); Neutrophils % 78.9 % (38.7-73.9); Platelet Count 106 T/CUMM (130-400); Red Blood Count 3.55 MC/CUMM (3.8-5.5); Red Cell Distribution Width 12.6 % (9.3-17.3); White Blood Count 8.9 T/CUMM (4-12)
[2019-07-21 05:14] LABS: Calcium 8.5 MG/DL (8.5-10.1); Osmolality,Calculated 281.4 MOS/KG (273-304)
[2019-07-21] MEDS: DORNASE ALFA 2.5 MG/2.5 ML VIAL RESP TX SCH (07:25)
[2019-07-21] MEDS: BUDESONIDE 0.5 MG/2 ML NEB RESP TX SCH (07:25)
[2019-07-21 08:26] VITALS: BP 140/71
[2019-07-21] MEDS: POTASSIUM CHLORIDE 10 MEQ TABLET PO SCH (08:57)
[2019-07-21] MEDS: MONTELUKAST 10 MG TABLET PO SCH (08:57)
[2019-07-21] MEDS: CALCIUM (CARBONATE) 500 MG TABLET PO SCH (08:58)
[2019-07-21] MEDS: MAGNESIUM OXIDE 400 MG TABLET PO SCH (08:58)
[2019-07-21] MEDS: THIAMINE 100 MG TABLET PO SCH (08:58)
[2019-07-21] MEDS: PANTOPRAZOLE 40 MG TABLET PO SCH (08:58)
[2019-07-21] MEDS: LEVOFLOXACIN INJ 750 MG in PREMIX 1 EACH IV SCH (08:58)
[2019-07-21] MEDS: CHOLECALCIFEROL 1,000 UNIT TABLET PO SCH (08:58)
[2019-07-21] MEDS: LIPASE PROTEASE AMYLASE PO SCH (08:59)
[2019-07-21] MEDS: BRIMONIDINE 0.2% OPH SOLN 5 ML BOTTLE BOTH EYES SCH (08:59)
[2019-07-21] MEDS: BETAXOLOL BOTH EYES SCH (08:59)
[2019-07-21] MEDS ORDERED: predniSONE 20 MG TABLET PO SCH (15:30)
== END 2019-07-21 10:50 | DRG 190 ==
LOC: EDBD → EDUNIT# → N.ED 08:19 → N.EDINP 11:37 → SUATTDRO 11:37 → N.TELEN 11:52
PROVIDERS: ADMIT Family Medicine; ATTEND Internal Medicine